=== PATIENT | male | born 1945 | race Caucasian/White ===

== ENCOUNTER 2020-03-23 16:32 | Inpatient (IN) | payer MEDICARE ==
[~2020-03-23] VITALS: Ht 170.2 cm; Wt 149.0 kg
[~2020-03-23 16:32] MED LIST: Aspirin EC81 MG PO; BASAGLAR K100 UNIT/1 SC; BISA10S PR; BUME2 PO; DOCU100 PO; GLIP5 PO; LEVFLO250 PO; LISI5 PO; METO2.5 PO; NEBI5 PO; OMEP40CA12 PO; POTCHL10ER PO; PRAV20 PO; QUALAQUIN; TRIHYD253A PO
[2020-03-23 17:22] LABS: BASOPHILS ABSOLUTE AUTO 0.06 K/mm3 (0.00-0.23); BASOPHILS PERCENT AUTO 1 % (0-2); EOSINOPHILS ABSOLUTE AUTO 0.26 K/mm3 (0.00-0.68); EOSINOPHILS PERCENT AUTO 3 % (0-6); Hematocrit 45.7 % (37.0-53.0); Hemoglobin 14.2 g/dL (13.5-17.5); IMMATURE GRAN ABSOLUTE AUTO 0.11 K/mm3 (0.00-0.10); IMMATURE GRAN PERCENT AUTO 1 % (0-1); LYMPHOCYTES ABSOLUTE AUTO 1.94 K/mm3 (0.84-5.20); LYMPHOCYTES PERCENT AUTO 19 % (21-46); MONOCYTES PERCENT AUTO 8 % (4-13); Mean Corpuscular HGB 27.4 pg (26.0-34.0); Mean Corpuscular HGB Conc 31.1 g/dL (31.5-36.5); Mean Corpuscular Volume 88 fL (80-100); NEUTROPHILS PERCENT AUTO 69 % (41-73); Platelet Count 209 K/mm3 (150-400); RDW Coefficient Variation 15.3 % (11.7-14.2); RDW Standard Deviation 49.3 fL (35.1-46.3); Red Blood Cell Count 5.18 M/mm3 (4.30-5.90); White Blood Cell Count 10.17 K/mm3 (4.00-11.30)
[2020-03-23 17:47] LABS: Alanine Aminotransfer (ALT/SGP 32 U/L (12-78); Albumin, Blood 3.3 g/dL (3.4-5.0); Albumin/Globulin Ratio 0.8 (0.8-1.8); Alk Phos 50 U/L (50-136); Anion Gap 5 mmol/L (6-16); Aspartate Aminotrans (AST/SGOT 21 U/L (12-37); Bilirubin, Total 0.3 mg/dL (0.1-1.0); Blood Urea Nitrogen 25 mg/dL (8-24); Bun/Creatinine Ratio 21.7 (12.0-20.0); CO2, Blood 30 mmol/L (21-32); Calcium, Blood 10.2 mg/dL (8.5-10.1); Chloride, Blood 102 mmol/L (98-108); Creatinine, Blood 1.15 mg/dL (0.60-1.20); Glomerular Filtration Rate >60 (60-); Glucose, Blood 295 mg/dL (70-99); Potassium, Blood 4.1 mmol/L (3.5-5.5); Sodium, Blood 137 mmol/L (136-145); Total Protein, Blood 7.3 g/dL (6.4-8.2); Troponin I <0.015 ng/mL (0.000-0.040)
[2020-03-23] MEDS ORDERED: Potassium Chlo20 ME1 PO (18:47)
[2020-03-23] MEDS ORDERED: Bumetanide2 MG PO (18:47)
[2020-03-23] MEDS ORDERED: ALLO300 PO (18:48)
[2020-03-23] MEDS ORDERED: OMEP20ER PO (18:48)
[2020-03-23] MEDS ORDERED: GLIP10 PO (18:48)
[2020-03-23] MEDS ORDERED: LISINOPRIL2.5 MG PO (18:48)
[2020-03-23] MEDS ORDERED: METFORMIN HCL500 M2 PO (18:49)
[2020-03-23] MEDS ORDERED: INSULIN AS100 UNIT/8 SC (18:50)
[2020-03-23 19:41] LABS: International Normalized Ratio 1.01; Prothrombin Time Results 10.8 Sec (9.7-11.5)
[2020-03-23] MEDS ORDERED: FERSU300 PO (19:44)
[2020-03-23] MEDS ORDERED: Vitamin D2000 UNIT PO (19:44)
[2020-03-24 03:56] LABS: BASOPHILS ABSOLUTE AUTO 0.05 K/mm3 (0.00-0.23); BASOPHILS PERCENT AUTO 1 % (0-2); EOSINOPHILS ABSOLUTE AUTO 0.35 K/mm3 (0.00-0.68); EOSINOPHILS PERCENT AUTO 4 % (0-6); Hematocrit 43.7 % (37.0-53.0); Hemoglobin 13.8 g/dL (13.5-17.5); IMMATURE GRAN ABSOLUTE AUTO 0.09 K/mm3 (0.00-0.10); IMMATURE GRAN PERCENT AUTO 1 % (0-1); LYMPHOCYTES ABSOLUTE AUTO 2.62 K/mm3 (0.84-5.20); LYMPHOCYTES PERCENT AUTO 27 % (21-46); MONOCYTES ABSOLUTE AUTO 0.86 K/mm3 (0.16-1.47); MONOCYTES PERCENT AUTO 9 % (4-13); Mean Corpuscular HGB 27.9 pg (26.0-34.0); Mean Corpuscular HGB Conc 31.6 g/dL (31.5-36.5); Mean Corpuscular Volume 89 fL (80-100); Mean Platelet Volume 10.7 fL (9.1-12.4); NEUTROPHILS ABSOLUTE AUTO 5.82 K/mm3 (1.96-9.15); NEUTROPHILS PERCENT AUTO 59 % (41-73); Platelet Count 224 K/mm3 (150-400); RDW Coefficient Variation 15.3 % (11.7-14.2); RDW Standard Deviation 49.2 fL (35.1-46.3); Red Blood Cell Count 4.94 M/mm3 (4.30-5.90); White Blood Cell Count 9.79 K/mm3 (4.00-11.30)
[2020-03-24 04:09] LABS: International Normalized Ratio 1.06; Prothrombin Time Results 11.3 Sec (9.7-11.5)
[2020-03-24 04:13] LABS: Anion Gap 5 mmol/L (6-16); Blood Urea Nitrogen 23 mg/dL (8-24); Bun/Creatinine Ratio 20.9 (12.0-20.0); CO2, Blood 31 mmol/L (21-32); Calcium, Blood 9.6 mg/dL (8.5-10.1); Chloride, Blood 105 mmol/L (98-108); Glomerular Filtration Rate >60 (60-); Glucose, Blood 160 mg/dL (70-99); Potassium, Blood 3.5 mmol/L (3.5-5.5); Sodium, Blood 141 mmol/L (136-145)
--- NOTE | 2020-03-24 06:24 | NUR ---
PATIENT TRANSFERRED FROM THE ED OVERNIGHT. DILTIAZEM DRIP INFUSING AT 10ML/HR. AFIB FLUCTUATING FROM 70'S TO 110'S. NO COMPLAINT OF CHEST PAIN OR SOB. EDUCATED ON THE USE OF CALL LIGHT AND UNIT ROUNDING. CALL LIGHT WITHIN REACH, WILL CONTINUE TO MONITOR UNTIL END OF SHIFT
--- NOTE | 2020-03-24 10:28 | NUR ---
BEGINNING OF SHIFT Assumed care at 0700. Bedside report recieved from Franko DELA CRUZ. Pt A&O x 4. Answers questions, follows commands, verbalizes needs. Repositions independently in bed. Pt on room air. Lungs clear, dim in bases. Pt on cardizem drip at 10 mg/hr. Atrial fibrillation per monitor with rate ranging from 105-115. Bed in lowest position. Call light in reach. Pt denies need at this time.
--- NOTE | 2020-03-24 14:50 | NUR ---
Cardizem drip discontinued at 1330. HR 80-90, atrial fibrillation. Pt remains on room air. Remains independent with in bed and bedside activities.
--- NOTE | 2020-03-24 17:38 | NUR ---
No acute changes to initial assessment. Pt has remained off cardizem drip. HR 80s-90s. BP stable. Pt remains on room air. Pt up to shower this shift, tolerated well. Will continue to closely monitor until care handoff and bedside report with oncoming RN.
--- NOTE | 2020-03-24 18:08 | NUR ---
Placed call to Dr Garcia to clarify new lovenox orders because pt is not yet therapeutic with coumadin dosing. Provider states that bridging from lovenox to coumadin is not necessary for this patient.
--- NOTE | 2020-03-24 19:09 | NUR ---
REPORT GIVEN TO TAMIKO DELA CRUZ
[2020-03-25 04:41] LABS: International Normalized Ratio 1.28; Prothrombin Time Results 13.5 Sec (9.7-11.5)
--- NOTE | 2020-03-25 07:16 | NUR ---
SHIFT SUMMARY PATIENT PLEASENT AND COOPERATIVE THROUGHOUT THE NIGHT. PATIENT APPEARED TO SLEEP WELL FOR SEVERAL HOURS LAST NIGHT. PATIENT USED HIS CPAP AND CONTINUOUS BIOX IN PLACE. PATIENT HAS BEEN VERY HOPFUL TO GO HOME TODAY AND HAS BEEN PLANNING WHAT HE WOULD LIKE TO HAVE FOR DINNER TONIGHT IF HE "GETS OUT OF HERE." PATIENT CURRENTLY SITTING UP IN THE CHAIR, WATCHING TV. REPORT GIVEN TO ONCBONG DELA CRUZ.
[2020-03-25] MEDS ORDERED: METF500 PO (10:08)
[2020-03-25] MEDS ORDERED: XARELTO20 MG PO (10:09)
[2020-03-25] MEDS ORDERED: METO50 PO (10:09)
--- NOTE | 2020-03-25 10:38 | NUR ---
DISCHARGED PT REVIEWED DC INSTRUCTIONS W/PT; VERBALIZED UNDERSTANDING. DC'D IVS, CATHETERS INTACT. TELE MONITOR DC'D. PT LEFT UNIT IN WC W/POSSESSIONS AND DC PAPERWORK IN HAND W/RIDE.
== END 2020-03-25 10:31 | disposition home or self-care (01) | DRG 309 ==
LOC: ER 16:32 → PCU 16:33
PROVIDERS: Emergency Medicine; Nurse Practitioner Acute Care; ADMIT Family Medicine
DX: I48.20 Chronic atrial fibrillation, unspecified (principal); Z68.43 Body mass index [BMI] 50.0-59.9, adult; I10 Essential (primary) hypertension; E78.5 Hyperlipidemia, unspecified; J44.9 Chronic obstructive pulmonary disease, unspecified; Z79.4 Long term (current) use of insulin; G47.33 Obstructive sleep apnea (adult) (pediatric); E11.22 Type 2 diabetes mellitus with diabetic chronic kidney disease; I12.9 Hypertensive chronic kidney disease with stage 1 through stage 4 chronic kidney disease, or unspecified chronic kidney disease; N18.3 Chronic kidney disease, stage 3 (moderate); M54.5 Low back pain; Z87.891 Personal history of nicotine dependence; K75.81 Nonalcoholic steatohepatitis (NASH); E66.01 Morbid (severe) obesity due to excess calories
CPT/HCPCS: 36415; 71046; 80048; 80053; 82947; 83880; 84443; 84484; 85025; 85610; 85730; 93005; 93010; 93306; 94660; 94762; 96365; 96372; 96374; 96375; 96376; 99285-25; A9270; A9270-GY; G0378; J1650; J3475

== ENCOUNTER 2021-02-25 06:48 | Day surgery (SDC) | payer OTHER ==
[~2021-02-25] VITALS: Ht 170.2 cm; Wt 147.0 kg
[~2021-02-25 06:48] MED LIST changes: +ALLO300 PO; +Bumetanide2 MG PO; +FERSU300 PO; +GLIP10 PO; +INSULANI SC; +INSULIN AS100 UNIT/8 SC; +LISINOPRIL2.5 MG PO; +METF500 PO; +METFORMIN HCL500 M2 PO; +METO50 PO; +OMEP20ER PO; +Potassium Chlo20 ME1 PO; +Vitamin D2000 UNIT PO; +XARELTO20 MG PO
[2021-02-25] MEDS ORDERED: ELIQUIS2.5 MG PO (08:03)
--- NOTE | 2021-02-25 08:22 | NUR ---
PT IN TO DS BY W/C BUT ABLE TO WALK AND STAND TO GET HT/WT. History, Chart, Medications and Allergies reviewed before start of procedure. Lungs clear T/O to Auscultation. Patient confirms NPO status and agrees with scheduled surgery. Pre-Op teaching done. Pt verbalizes understanding. Patient states colon prep results clear. Patient States Post-Procedure ride home has been arranged WITH SISTER GIVING PT RIDE HOME.
--- NOTE | 2021-02-25 09:56 | NUR ---
02/25/21 0956 Brenda Lopes History, Chart, Medications and Allergies reviewed before start of procedure.Patient confirms NPO status and agrees with scheduled surgery.MONITOR INTACT WITH CONTINUOUS PULSE OXIMETRY AND INTERMITTENT BP.See Anesthesia record
--- NOTE | 2021-02-25 13:05 | NUR ---
Patient up to Ambulate independently. Gait steady. Discharge instructions reviewed with patient/Sister Lisy. Patient verbalizes understanding. Copy given to patient to take home. Patient States Post-Procedure ride home has been arranged. Discharged via wheelchair to private car for ride home.
== END 2021-02-25 13:14 | disposition home or self-care (01) ==
LOC: ORSCMMR 06:48 → ORD 08:30 → ORSCMMR 08:30
PROVIDERS: Internal Medicine Gastroenterology
PROC: 0DBL8ZX Excision of Transverse Colon, Via Natural or Artificial Opening Endoscopic, Diagnostic (ICD-10-PCS; principal; 2021-02-25 08:30)
PROC: 0DBM8ZX Excision of Descending Colon, Via Natural or Artificial Opening Endoscopic, Diagnostic (ICD-10-PCS; principal; 2021-02-25 08:30)
PROC: 0DBN8ZX Excision of Sigmoid Colon, Via Natural or Artificial Opening Endoscopic, Diagnostic (ICD-10-PCS; principal; 2021-02-25 08:30)
PROC: 0DBH8ZX Excision of Cecum, Via Natural or Artificial Opening Endoscopic, Diagnostic (ICD-10-PCS; principal; 2021-02-25 08:30)
PROC: 0DB78ZX Excision of Stomach, Pylorus, Via Natural or Artificial Opening Endoscopic, Diagnostic (ICD-10-PCS; 2021-02-25 08:30)
DX: D50.9 Iron deficiency anemia, unspecified (principal); K21.9 Gastro-esophageal reflux disease without esophagitis; Z86.010 Personal history of colon polyps; K31.7 Polyp of stomach and duodenum; D12.4 Benign neoplasm of descending colon; D12.3 Benign neoplasm of transverse colon; D12.0 Benign neoplasm of cecum; D12.5 Benign neoplasm of sigmoid colon; K57.30 Diverticulosis of large intestine without perforation or abscess without bleeding; K64.1 Second degree hemorrhoids; K76.6 Portal hypertension; E66.01 Morbid (severe) obesity due to excess calories; Z68.43 Body mass index [BMI] 50.0-59.9, adult; J44.9 Chronic obstructive pulmonary disease, unspecified; G47.33 Obstructive sleep apnea (adult) (pediatric); I48.91 Unspecified atrial fibrillation; E11.42 Type 2 diabetes mellitus with diabetic polyneuropathy; Z79.01 Long term (current) use of anticoagulants; I10 Essential (primary) hypertension; E78.5 Hyperlipidemia, unspecified; N18.9 Chronic kidney disease, unspecified; Z79.899 Other long term (current) drug therapy; Z79.82 Long term (current) use of aspirin; Z79.4 Long term (current) use of insulin
CPT/HCPCS: 82947; 88305; 88341; 88342; J0330; J1100; J2370; J2405; J2704; J3010; J7120

== ENCOUNTER → 2021-04-20 | Outpatient (CLI) | payer OTHER ==
[~2021-04-20] MED LIST changes: +ELIQUIS2.5 MG PO
[2021-04-20 19:13] LABS: BASOPHILS ABSOLUTE AUTO 0.05 K/mm3 (0.00-0.23); BASOPHILS PERCENT AUTO 1 % (0-2); EOSINOPHILS ABSOLUTE AUTO 0.27 K/mm3 (0.00-0.68); EOSINOPHILS PERCENT AUTO 3 % (0-6); Hematocrit 42.4 % (37.0-53.0); IMMATURE GRAN ABSOLUTE AUTO 0.05 K/mm3 (0.00-0.10); IMMATURE GRAN PERCENT AUTO 1 % (0-1); LYMPHOCYTES ABSOLUTE AUTO 1.75 K/mm3 (0.84-5.20); LYMPHOCYTES PERCENT AUTO 18 % (21-46); MONOCYTES PERCENT AUTO 9 % (4-13); Mean Corpuscular HGB Conc 30.7 g/dL (31.5-36.5); Mean Corpuscular Volume 94 fL (80-100); Mean Platelet Volume 11.6 fL (9.1-12.4); NEUTROPHILS ABSOLUTE AUTO 6.77 K/mm3 (1.96-9.15); NEUTROPHILS PERCENT AUTO 69 % (41-73); Platelet Count 195 K/mm3 (150-400); RDW Coefficient Variation 14.7 % (11.7-14.2); RDW Standard Deviation 50.9 fL (35.1-46.3); Red Blood Cell Count 4.49 M/mm3 (4.30-5.90); White Blood Cell Count 9.79 K/mm3 (4.00-11.30)
[2021-04-20 22:03] LABS: Alanine Aminotransfer (ALT/SGP 25 U/L (12-78); Albumin, Blood 3.3 g/dL (3.4-5.0); Albumin/Globulin Ratio 0.9 (0.8-1.8); Alk Phos 46 U/L (50-136); Anion Gap 3 mmol/L (6-16); Aspartate Aminotrans (AST/SGOT 14 U/L (12-37); Bilirubin, Total 0.4 mg/dL (0.1-1.0); Blood Urea Nitrogen 23 mg/dL (8-24); Bun/Creatinine Ratio 20.9 (12.0-20.0); CO2, Blood 28 mmol/L (21-32); Calcium, Blood 10.4 mg/dL (8.5-10.1); Chloride, Blood 107 mmol/L (98-108); Ferritin, Serum 31 ng/mL (26-388); Globulin, Blood 3.7 g/dL (2.2-4.0); Glomerular Filtration Rate >60 (60-); Glucose, Blood 149 mg/dL (70-99); Iron Serum 58 ug/dL (65-175); Percent Saturation 13.3 % (20.0-50.0); Potassium, Blood 4.7 mmol/L (3.5-5.5); Sodium, Blood 138 mmol/L (136-145); Total Iron Binding Capacity 435 ug/dL (250-450)
== END | disposition home or self-care (01) ==
LOC: LAB SHORT 15:20
PROVIDERS: Physician Assistant
DX: D50.9 Iron deficiency anemia, unspecified (principal); R94.4 Abnormal results of kidney function studies
CPT/HCPCS: 80053; 82728; 83540; 83550; 85025

== ENCOUNTER → 2021-07-20 | Outpatient (CLI) | payer OTHER ==
[2021-07-20 20:07] LABS: BASOPHILS ABSOLUTE AUTO 0.05 K/mm3 (0.00-0.23); BASOPHILS PERCENT AUTO 1 % (0-2); EOSINOPHILS PERCENT AUTO 3 % (0-6); Hematocrit 46.7 % (37.0-53.0); Hemoglobin 14.6 g/dL (13.5-17.5); IMMATURE GRAN ABSOLUTE AUTO 0.05 K/mm3 (0.00-0.10); IMMATURE GRAN PERCENT AUTO 1 % (0-1); LYMPHOCYTES ABSOLUTE AUTO 1.95 K/mm3 (0.84-5.20); LYMPHOCYTES PERCENT AUTO 20 % (21-46); MONOCYTES ABSOLUTE AUTO 0.88 K/mm3 (0.16-1.47); MONOCYTES PERCENT AUTO 9 % (4-13); Mean Corpuscular HGB 28.3 pg (26.0-34.0); Mean Corpuscular HGB Conc 31.3 g/dL (31.5-36.5); Mean Corpuscular Volume 91 fL (80-100); Mean Platelet Volume 11.2 fL (9.1-12.4); NEUTROPHILS ABSOLUTE AUTO 6.44 K/mm3 (1.96-9.15); NEUTROPHILS PERCENT AUTO 67 % (41-73); Platelet Count 218 K/mm3 (150-400); RDW Coefficient Variation 14.5 % (11.7-14.2); RDW Standard Deviation 47.8 fL (35.1-46.3); Red Blood Cell Count 5.16 M/mm3 (4.30-5.90); White Blood Cell Count 9.67 K/mm3 (4.00-11.30)
[2021-07-20 20:11] LABS: Bun/Creatinine Ratio 23.3 (12.0-20.0); Calcium, Blood 9.9 mg/dL (8.5-10.1); Creatinine, Blood 1.2 mg/dL (0.60-1.20); Potassium, Blood 4.4 mmol/L (3.5-5.5)
== END | disposition home or self-care (01) ==
LOC: LAB SHORT 16:35
PROVIDERS: Physician Assistant
DX: E87.5 Hyperkalemia (principal); D50.9 Iron deficiency anemia, unspecified
CPT/HCPCS: 80048; 85025

== ENCOUNTER → 2021-12-06 | Outpatient (CLI) | payer OTHER ==
[2021-12-06 17:54] LABS: BASOPHILS ABSOLUTE AUTO 0.07 K/mm3 (0.00-0.23); BASOPHILS PERCENT AUTO 1 % (0-2); EOSINOPHILS ABSOLUTE AUTO 0.44 K/mm3 (0.00-0.68); EOSINOPHILS PERCENT AUTO 3 % (0-6); Hematocrit 43.5 % (37.0-53.0); Hemoglobin 13.8 g/dL (13.5-17.5); IMMATURE GRAN ABSOLUTE AUTO 0.23 K/mm3 (0.00-0.10); IMMATURE GRAN PERCENT AUTO 2 % (0-1); LYMPHOCYTES ABSOLUTE AUTO 2.13 K/mm3 (0.84-5.20); LYMPHOCYTES PERCENT AUTO 17 % (21-46); MONOCYTES ABSOLUTE AUTO 1.05 K/mm3 (0.16-1.47); MONOCYTES PERCENT AUTO 8 % (4-13); Mean Corpuscular HGB 27.5 pg (26.0-34.0); Mean Corpuscular HGB Conc 31.7 g/dL (31.5-36.5); Mean Corpuscular Volume 87 fL (80-100); Mean Platelet Volume 10.1 fL (9.1-12.4); NEUTROPHILS PERCENT AUTO 70 % (41-73); Platelet Count 342 K/mm3 (150-400); RDW Coefficient Variation 14.6 % (11.7-14.2); Red Blood Cell Count 5.01 M/mm3 (4.30-5.90); White Blood Cell Count 12.82 K/mm3 (4.00-11.30)
[2021-12-06 19:04] LABS: Alanine Aminotransfer (ALT/SGP 16 U/L (12-78); Albumin, Blood 3.2 g/dL (3.4-5.0); Albumin/Globulin Ratio 0.8 (0.8-1.8); Alk Phos 406 U/L (50-136); Anion Gap 7 mmol/L (6-16); Aspartate Aminotrans (AST/SGOT 53 U/L (12-37); Bilirubin, Total 0.8 mg/dL (0.1-1.0); Blood Urea Nitrogen 22 mg/dL (8-24); CHOL/HDL RATIO 5.8; CO2, Blood 26 mmol/L (21-32); Calcium, Blood 10.6 mg/dL (8.5-10.1); Chloride, Blood 102 mmol/L (98-108); Cholesterol 169 mg/dL (50-200); Globulin, Blood 3.8 g/dL (2.2-4.0); Glomerular Filtration Rate >60 (60-); Glucose, Blood 112 mg/dL (70-99); HDL Cholesterol 29 mg/dL (>39); LDL/HDL RATIO 3.4; Low Density Lipoprotein Chol 97 mg/dL (0-110); Potassium, Blood 4.6 mmol/L (3.5-5.5); Sodium, Blood 135 mmol/L (136-145); Triglycerides 214 mg/dL (30-160); Very Low Density Lipoprot Chol 42 mg/dL (6-32)
== END | disposition home or self-care (01) ==
LOC: LAB 15:58 → LAB SHORT 15:58
PROVIDERS: Nurse Practitioner
DX: Z11.59 Encounter for screening for other viral diseases (principal); I10 Essential (primary) hypertension; E11.65 Type 2 diabetes mellitus with hyperglycemia; E78.2 Mixed hyperlipidemia; R74.8 Abnormal levels of other serum enzymes
CPT/HCPCS: 80053; 80061; 82043; 82977; 85025; 86803

== ENCOUNTER 2022-01-02 08:48 | Emergency (ER) | payer OTHER, MEDICAID ==
[~2022-01-02] VITALS: Ht 170.2 cm; Wt 127.0 kg
[2022-01-02 09:44] LABS: BASOPHILS ABSOLUTE AUTO 0.08 K/mm3 (0.00-0.23); BASOPHILS PERCENT AUTO 1 % (0-2); EOSINOPHILS ABSOLUTE AUTO 0.19 K/mm3 (0.00-0.68); EOSINOPHILS PERCENT AUTO 2 % (0-6); Hematocrit 39.5 % (37.0-53.0); Hemoglobin 12.4 g/dL (13.5-17.5); IMMATURE GRAN PERCENT AUTO 3 % (0-1); LYMPHOCYTES ABSOLUTE AUTO 1.68 K/mm3 (0.84-5.20); LYMPHOCYTES PERCENT AUTO 14 % (21-46); MONOCYTES ABSOLUTE AUTO 1.32 K/mm3 (0.16-1.47); MONOCYTES PERCENT AUTO 11 % (4-13); Mean Corpuscular HGB 27.4 pg (26.0-34.0); Mean Corpuscular HGB Conc 31.4 g/dL (31.5-36.5); Mean Corpuscular Volume 87 fL (80-100); Mean Platelet Volume 9.7 fL (9.1-12.4); NEUTROPHILS ABSOLUTE AUTO 8.75 K/mm3 (1.96-9.15); NEUTROPHILS PERCENT AUTO 71 % (41-73); Platelet Count 360 K/mm3 (150-400); RDW Coefficient Variation 15.3 % (11.7-14.2); RDW Standard Deviation 48.5 fL (35.1-46.3); Red Blood Cell Count 4.52 M/mm3 (4.30-5.90); White Blood Cell Count 12.42 K/mm3 (4.00-11.30)
[2022-01-02 10:32] LABS: Albumin, Blood 2.6 g/dL (3.4-5.0); Albumin/Globulin Ratio 0.6 (0.8-1.8); Bilirubin, Total 0.7 mg/dL (0.1-1.0); Bun/Creatinine Ratio 16.7 (12.0-20.0); Creatinine, Blood 0.84 mg/dL (0.60-1.20); Globulin, Blood 4.3 g/dL (2.2-4.0); Potassium, Blood 4.7 mmol/L (3.5-5.5); Total Protein, Blood 6.9 g/dL (6.4-8.2)
[2022-01-02 11:10] LABS: Source, Urine Clean Catch
[2022-01-02 11:28] LABS: Bilirubin, Urine Neg (Neg); Blood, Urine Neg (Neg); Glucose Qualitative, Urine Neg (Neg); Ketones, Urine Neg (Neg); Leukocyte Esterase, Urine Neg (Neg); Nitrite, Urine Neg (Neg); Protein, Urine 1+ (Neg); Specific Gravity, Urine 1.015 (1.003-1.022); Urobilinogen, Urine 2+ (Normal)
[2022-01-02 11:33] LABS: Appearance, Urine Clear (Clear); Color, Urine Yellow (P-Yellow)
[2022-01-02 14:15] LABS: Influenza A, PCR NEGATIVE (NEGATIVE); Influenza B, PCR NEGATIVE (NEGATIVE); Resp Syncytial Virus, PCR NEGATIVE (NEGATIVE); SARS-Cov-2 (COVID-19) PCR, MMC NEGATIVE (NEGATIVE)
== END 2022-01-03 12:20 ==
LOC: ER 08:48
PROVIDERS: Emergency Medicine
DX: R53.1 Weakness (principal); E78.5 Hyperlipidemia, unspecified; E11.22 Type 2 diabetes mellitus with diabetic chronic kidney disease; I12.9 Hypertensive chronic kidney disease with stage 1 through stage 4 chronic kidney disease, or unspecified chronic kidney disease; N18.30 Chronic kidney disease, stage 3 unspecified; J44.9 Chronic obstructive pulmonary disease, unspecified; E66.01 Morbid (severe) obesity due to excess calories; R74.8 Abnormal levels of other serum enzymes; I70.90 Unspecified atherosclerosis; M47.816 Spondylosis without myelopathy or radiculopathy, lumbar region; Z20.822 Contact with and (suspected) exposure to COVID-19; Z79.899 Other long term (current) drug therapy; Z88.8 Allergy status to other drugs, medicaments and biological substances; Z88.1 Allergy status to other antibiotic agents; Z79.4 Long term (current) use of insulin; Z79.01 Long term (current) use of anticoagulants; Z79.82 Long term (current) use of aspirin; Z91.018 Allergy to other foods
CPT/HCPCS: 0241U; 71045; 72100; 72170; 80053; 83880; 85025; 93005; 93010; 97110; 97162; 99285-25; J7030

== ENCOUNTER → 2022-02-27 | Outpatient (CLI) | payer OTHER | END | disposition home or self-care (01) | LOC: LAB 17:40 → LAB SHORT 17:40 | DX: E11.9 Type 2 diabetes mellitus without complications (principal); M62.81 Muscle weakness (generalized); R74.8 Abnormal levels of other serum enzymes | CPT/HCPCS: 83036; 83970 ==

== ENCOUNTER 2022-03-08 17:05 | Inpatient (IN) | payer OTHER ==
[~2022-03-08] VITALS: Ht 170.2 cm; Wt 124.1 kg
[2022-03-08 18:03] LABS: BASOPHILS ABSOLUTE AUTO 0.04 K/mm3 (0.00-0.23); BASOPHILS PERCENT AUTO 0 % (0-2); EOSINOPHILS ABSOLUTE AUTO 0.19 K/mm3 (0.00-0.68); EOSINOPHILS PERCENT AUTO 2 % (0-6); Hemoglobin 7.2 g/dL (13.5-17.5); IMMATURE GRAN ABSOLUTE AUTO 0.54 K/mm3 (0.00-0.10); IMMATURE GRAN PERCENT AUTO 4 % (0-1); LYMPHOCYTES PERCENT AUTO 15 % (21-46); MONOCYTES ABSOLUTE AUTO 1.31 K/mm3 (0.16-1.47); MONOCYTES PERCENT AUTO 11 % (4-13); Mean Corpuscular HGB 26.5 pg (26.0-34.0); Mean Corpuscular Volume 88 fL (80-100); Mean Platelet Volume 10.1 fL (9.1-12.4); NEUTROPHILS ABSOLUTE AUTO 8.47 K/mm3 (1.96-9.15); NEUTROPHILS PERCENT AUTO 69 % (41-73); NRBC ABSOLUTE 0.03 K/mm3 (0.00-0.02); NRBC Auto 0.2 /100 WBC (0.0-0.2); Platelet Count 343 K/mm3 (150-400); RDW Coefficient Variation 19.7 % (11.7-14.2); RDW Standard Deviation 61.4 fL (35.1-46.3); Red Blood Cell Count 2.72 M/mm3 (4.30-5.90); White Blood Cell Count 12.35 K/mm3 (4.00-11.30)
[2022-03-08 18:33] LABS: Albumin, Blood 2.5 g/dL (3.4-5.0); Albumin/Globulin Ratio 0.6 (0.8-1.8); Bilirubin, Total 0.7 mg/dL (0.1-1.0); Calcium, Blood 9.9 mg/dL (8.5-10.1); Creatinine, Blood 2.1 mg/dL (0.60-1.20); Potassium, Blood 5.5 mmol/L (3.5-5.5); Total Protein, Blood 6.5 g/dL (6.4-8.2)
[2022-03-08 23:52] LABS: Source, Urine Clean Catch
[2022-03-08 23:54] LABS: Bilirubin, Urine Neg (Neg); Blood, Urine Neg (Neg); Glucose Qualitative, Urine Neg (Neg); Ketones, Urine Neg (Neg); Leukocyte Esterase, Urine 1+ (Neg); Nitrite, Urine Neg (Neg); Protein, Urine Neg (Neg); Specific Gravity, Urine 1.015 (1.003-1.022); Urobilinogen, Urine NORM (Normal)
[2022-03-09 00:04] LABS: Influenza A, PCR NEGATIVE (NEGATIVE); Influenza B, PCR NEGATIVE (NEGATIVE); Resp Syncytial Virus, PCR NEGATIVE (NEGATIVE)
[2022-03-09 00:09] LABS: SARS-Cov-2 (COVID-19) PCR, MMC POSITIVE (NEGATIVE)
[2022-03-09 00:20] LABS: Appearance, Urine Clear (Clear); Color, Urine Yellow (P-Yellow)
[2022-03-09 00:20] LABS: Hematocrit 24.2 % (37.0-53.0); Hemoglobin 7.2 g/dL (13.5-17.5); Mean Corpuscular HGB 26.8 pg (26.0-34.0); Mean Corpuscular HGB Conc 29.8 g/dL (31.5-36.5); Mean Corpuscular Volume 90 fL (80-100); Mean Platelet Volume 9.8 fL (9.1-12.4); Platelet Count 309 K/mm3 (150-400); RDW Coefficient Variation 19.5 % (11.7-14.2); RDW Standard Deviation 61.5 fL (35.1-46.3); Red Blood Cell Count 2.69 M/mm3 (4.30-5.90); White Blood Cell Count 13.34 K/mm3 (4.00-11.30)
[2022-03-09 00:22] LABS: Bacteria Not Seen /hpf; Hyaline Casts 0-2 /lpf (0-2); Red Blood Cells, Urine Not Seen /hpf (0-2); Squamous Epithelial Cells Rare /hpf (Few); White Blood Cells, Urine 0-2 /hpf (0-5)
[2022-03-09 05:42] LABS: Hematocrit 23.9 % (37.0-53.0)
--- NOTE | 2022-03-09 06:04 | NUR ---
SHIFT SUMMARY ER ADMIT. PT ALERT. ABLE TO ANSWER ORIENTATION QUESTIONS BUT FORGETFUL. FALLS ASLEEP AFTER ANSWERING QUESTIONS. BP HYPOTENSIVE ON ARRIVAL TO PCU. 500ML BOLUS GIVEN, MAP NOW MAINTAINING OVER 65. AFEBRILE. ON RA SATS OVER 90%. LUNGS DIMINISHED THROUGHOUT. HR AFIB 70'S. PT DENIES PAIN OR DISCOMFORT. NS, PROTONIX, AND OCREATIDE GTT INFUSING. YISEL PG DRAWS. SALDANA IN PLACE DRAINING DARK YELLOW URINE TO GRAVITY. SLEEPING WITH CALL ALARM AT SIDE, WILL CONTINUE TO MONITOR UNTIL REPORT GIVEN TO MARIA C DELA CRUZ.
--- NOTE | 2022-03-09 10:58 | NUR ---
PT RECIEVING BLOOD AT THIS TIME. ATTEMPTED TO CALL SISTER TO GIVE UPDATE. MESSAGE LEFT TO GIVE A CALL BACK
--- NOTE | 2022-03-09 11:00 | NUR ---
Attempted to make initial visit and contact two family members listed on face sheet, Sister-Cira and [id number]-Vivian. Message left on home phone [phone], requesting call back and text message sent to Vivian's cell [phone], as it did not have VM set up and requested text to contact. I attempted to visit with pt but he did not wake to voice or gentle touch/attempts to wake x two. He appears to be profoundly exhausted, sleeping, while blood being transfused. Goal is to discuss his wishes re: advanced resuscitation efforts desired and goals of care. I spoke with Dr and pt's RN. Pt has requested we discuss with his family. I will keep trying to reach them. Pt was admitted during the night for GI bleed. In review of past admissions, this is a recurrent issue for pt. Pt stated to admitting Dr that he did not want intubation and POLST on file in EMR also states no intubation. This POLST was completed in 2015. Will attempt to complete new POLST while pt here. Pt's comorbidities include acute/chronic kidney failure, DM, HTN, COPD, CHRISTIE, CHF, hx of metastatic prostate CA (per Dr and confirmed to Dr by pt). Pt had a Covid infection 1-2 months ago and a stay at SNF afterwards for rehab services. He resides in the same home as his sister and [id number]. SUMIT is caregiver for both pt and his sister and works outside of the home per CM notes from December ER visit. PLAN to cont attempting to reach family for advanced care planning.
[2022-03-09 14:07] LABS: Hematocrit 25.2 % (37.0-53.0); Hemoglobin 7.7 g/dL (13.5-17.5)
--- NOTE | 2022-03-09 15:46 | NUR ---
SPOKE WITH DR MORALES REGARDING PLANS FOR PT. CLEAR LIQUIDS AT THIS TIME, POSSIBLE PROCEDURE TOMORROW. DR DOWNS AWARE. DR DOWNS AWARE THAT PT RECIEVED 1 UNIT OF BLOOD WITH SLIGHT IMPROVEMENT. SOFT BPS T/O DAY WITH LETHARGY. DR JORDAN STOP IV FLUIDS AFTER THIS BAG SO TO NOT FLUID OVERLOAD PT. TO REVIEW HOME MEDS.
--- NOTE | 2022-03-09 17:34 | NUR ---
SHIFT SUMMARY: PT WORKED WITH PHYSICAL THERAPY THIS EVENING, TOLERATED WELL PER THERAPIST. RECOMMENDING SNF AT THIS TIME. DR MORALES STATES POSSIBLE PROCEDURE TOMORROW. NO REPORTS OF STOOL THIS SHIFT. 1 UNIT OF BLOOD RECIEVED. BP HAS IMPROVED BY END OF SHIFT.
[2022-03-09 17:53] LABS: Hematocrit 25.8 % (37.0-53.0); Hemoglobin 7.8 g/dL (13.5-17.5)
[2022-03-10 04:11] LABS: BASOPHILS ABSOLUTE AUTO 0.03 K/mm3 (0.00-0.23); BASOPHILS PERCENT AUTO 0 % (0-2); EOSINOPHILS ABSOLUTE AUTO 0.15 K/mm3 (0.00-0.68); EOSINOPHILS PERCENT AUTO 2 % (0-6); Hematocrit 25.1 % (37.0-53.0); Hemoglobin 7.6 g/dL (13.5-17.5); IMMATURE GRAN ABSOLUTE AUTO 0.39 K/mm3 (0.00-0.10); IMMATURE GRAN PERCENT AUTO 4 % (0-1); LYMPHOCYTES ABSOLUTE AUTO 1.14 K/mm3 (0.84-5.20); LYMPHOCYTES PERCENT AUTO 11 % (21-46); MONOCYTES PERCENT AUTO 8 % (4-13); Mean Corpuscular HGB 27.5 pg (26.0-34.0); Mean Corpuscular HGB Conc 30.3 g/dL (31.5-36.5); Mean Corpuscular Volume 91 fL (80-100); Mean Platelet Volume 9.9 fL (9.1-12.4); NEUTROPHILS ABSOLUTE AUTO 7.49 K/mm3 (1.96-9.15); NEUTROPHILS PERCENT AUTO 75 % (41-73); NRBC ABSOLUTE 0.02 K/mm3 (0.00-0.02); NRBC Auto 0.2 /100 WBC (0.0-0.2); Platelet Count 274 K/mm3 (150-400); RDW Coefficient Variation 19.1 % (11.7-14.2); Red Blood Cell Count 2.76 M/mm3 (4.30-5.90)
--- NOTE | 2022-03-10 05:34 | NUR ---
NOC SHIFT SUMMARY PT LETHARGIC AT BEGINNING OF SHIFT BUT ORIENTED X4. BECAME MORE ALERT THIS AM. VSS PER PT TREND. NO COMPLAINTS OF PAIN. SALDANA TO DD W/ADEQUATE OUTPUT. NSR ON TELEMETRY. WILL CONTINUE TO MONITOR AND PASS ON TO DAY RN
[2022-03-10 05:42] LABS: Albumin, Blood 2.2 g/dL (3.4-5.0); Albumin/Globulin Ratio 0.7 (0.8-1.8); Bilirubin, Total 0.6 mg/dL (0.1-1.0); Calcium, Blood 9.3 mg/dL (8.5-10.1); Creatinine, Blood 1.86 mg/dL (0.60-1.20); Globulin, Blood 3.1 g/dL (2.2-4.0); Potassium, Blood 4.8 mmol/L (3.5-5.5); Total Protein, Blood 5.3 g/dL (6.4-8.2)
--- NOTE | 2022-03-10 11:24 | NUR ---
03/10/22 1124 Concepción Singh History, Chart, Medications and Allergies reviewed before start of procedure.LIDO P[RAY TO THROAT PRIOR TO PROCEDURE. DR TEJADA PROVIDING ANESTHESIA. BITE BLOCK AND POM PLACED PRIOR TO PROCEDURE
[2022-03-10 17:27] LABS: Hematocrit 27.1 % (37.0-53.0); Hemoglobin 8.2 g/dL (13.5-17.5)
--- NOTE | 2022-03-10 17:34 | NUR ---
SUMMARY: NO ACUTE CHANGE TODAY, VSS. A/O. PT ABLE TO WORK WITH THERAPY, UP WITH1-2 AND FWW. SOME SOB ON EXERTION. SATS STABLE ON RA. UPPER ENDO COMPLETED TODAY, PT TOLERATED POST OP WELL. PT HAD LARGE DARK BM TONIGHT, NO SIGNS OF ACUTE BLEED . PT DENIES ANY DIZZINESS, SOB. SALDANA DRAINING. PLAN IS FOR AN ADDITIONAL ENDOSCOPY ON SUNDAY FOR POLYP REMOVAL. NO ACUTE SAFETY CONCERNS. PT AND PT FAMILY IS AWARE OF PLAN. WILL CTM AND REPORT TO ERINN DELA CRUZ.
--- NOTE | 2022-03-10 17:50 | NUR ---
Family meeting with Gasper, Jovon-Jeanne [phone] and pt's sis-in-law, Shavon. They request that Jeanne be the primary contact for communication and planning as she is most able to answer phone or respond in timely way. Drs discussed current issues and concerns with family and plan of care to address GI Bleed, pneumonia and colon polyp noted in today's endoscopy. Pt has evidence of bony mets from prostate cancer also. Code status addressed with advanced care planning conversation. Jovon had just arrived from out of state and had not had time to discuss with pt yet. Planned with family and pt to stop in over the weekend to further discuss if they would like to. Currently the pt will remain a full code. He was more awake today than yesterday but dozed off frequently during the visit and did not participate in the conversation between family and Gasper or me. He c/o lower abd discomfort like a band around low abd and low back. Pt was able to work with PT today and PT recommended for when pt is medically stable for d/c back home. RN present for family meeting also.
[2022-03-11 00:18] LABS: Hematocrit 25.2 % (37.0-53.0); Hemoglobin 7.7 g/dL (13.5-17.5)
[2022-03-11 06:46] LABS: Hemoglobin 7.5 g/dL (13.5-17.5)
--- NOTE | 2022-03-11 06:48 | NUR ---
NOC SHIFT SUMMARY PT ORIENTED X3, LETHARGIC BUT AWAKENS TO VOICE. CPAP OVERNIGHT, NO COMPLAINTS OF PAIN OR DISCOMFORT. VSS PER PT TREND. ADEQUATE UOP PER SALDANA. WILL CONTINUE TO MONITOR AND PASS ON TO DAY RN
[2022-03-11] MEDS ORDERED: ATOR20 PO (09:01)
[2022-03-11 09:02] LABS: Bun/Creatinine Ratio 24.2 (12.0-20.0); Calcium, Blood 10.6 mg/dL (8.5-10.1); Creatinine, Blood 1.61 mg/dL (0.60-1.20); Potassium, Blood 4.4 mmol/L (3.5-5.5)
[2022-03-11] MEDS ORDERED: Robaxin750 MG PO (09:09)
[2022-03-11] MEDS ORDERED: D3 PO (09:10)
[2022-03-11] MEDS ORDERED: NYSTATIN POWDER TOP (09:14)
[2022-03-11] MEDS ORDERED: Triamcinolone A15 G2 TOP (09:15)
[2022-03-11 14:03] LABS: Hematocrit 27.2 % (37.0-53.0); Hemoglobin 8.1 g/dL (13.5-17.5)
--- NOTE | 2022-03-11 17:58 | NUR ---
PT SUMMARY: PT ALERT AND ORIENTED AT BASELINE, PLEASANT AND COOPERATIVE WITH CARES, VITALS HRR AFIB 90-130'S INCREASES WITH EXERTION, METOPROLOL TARTRATE 50MG RESUMED FOR THE SHIFT, HRR STAYED 70-100 FOR THE REST OF THE SHIFT, SATS ABOVE 90% ON RA PT GETS SOB WITH EXERTION, CPAP WHEN SLEEPING. BP SYSTOLIC 120-130'S, AFEBRILE. 2PA VIA FWW FOR TRANSFERS, NO REPORTED BM FOR THE SHIFT, NO ACTIVE BLEEDING, ALST HGB IS AT 8.1 DR MORALES SAW PT TODAY STILL PLANS ON DOING REPEAT UPPER GI SCOPE INPATIENT ON Sunday03/13/22. PT DENIES ANY KIND OF PAIN FOR THE SHIFT, PT REPOSITONED IN BED FOR COMFORT. SALDANA DRAINING DARK YELLOW URINE VIA GRAVITY. DAUGHTER AT BEDSIDE MOST OF THE SHIFT, AWARE OF THE PLAN OF CARE. NO OTHER ISSUES REPORTED, ABLE TO MAKE NEEDS KNOWN, WILL REPORT TO ONCOMING SHIFT
[2022-03-11 19:12] LABS: Hematocrit 26.2 % (37.0-53.0); Hemoglobin 7.7 g/dL (13.5-17.5)
[2022-03-12 04:53] LABS: Hematocrit 26.6 % (37.0-53.0); Hemoglobin 7.9 g/dL (13.5-17.5); Mean Corpuscular HGB 27.4 pg (26.0-34.0); Mean Corpuscular HGB Conc 29.7 g/dL (31.5-36.5); Mean Corpuscular Volume 92 fL (80-100); NRBC ABSOLUTE 0.04 K/mm3 (0.00-0.02); NRBC Auto 0.5 /100 WBC (0.0-0.2); Platelet Count 272 K/mm3 (150-400); RDW Coefficient Variation 19.8 % (11.7-14.2); RDW Standard Deviation 63.9 fL (35.1-46.3); Red Blood Cell Count 2.88 M/mm3 (4.30-5.90)
[2022-03-12 05:13] LABS: Bun/Creatinine Ratio 23.6 (12.0-20.0); Calcium, Blood 10.6 mg/dL (8.5-10.1); Creatinine, Blood 1.44 mg/dL (0.60-1.20); Potassium, Blood 4.5 mmol/L (3.5-5.5)
[2022-03-12 05:37] LABS: BAND PERCENT MAN 3 % (0-8); BASOPHILS PERCENT MAN 0 % (0-2); EOSINOPHILS ABSOLUTE MAN 0.68 K/mm3 (0.00-0.68); EOSINOPHILS PERCENT MAN 8 % (0-6); LYMPHOCYTES ABSOLUTE MAN 1.03 K/mm3 (0.84-5.20); LYMPHOCYTES PERCENT MAN 12 % (21-46); METAMYELOCYTE ABSOLUTE MAN 0.25 K/mm3 (0.00-0.00); METAMYELOCYTE PERCENT MAN 3 % (0-0); MONOCYTES ABSOLUTE MAN 0.08 K/mm3 (0.16-1.47); MONOCYTES PERCENT MAN 1 % (4-13); MYELOCYTE ABSOLUTE MAN 0.17 K/mm3 (0.00-0.00); MYELOCYTE PERCENT MAN 2 % (0-0); NEUTROPHILS ABSOLUTE MAN 6.36 K/mm3 (1.96-9.15); SEG NEUTROPHILS PERCENT MAN 71 % (41-73); TOTAL CELLS COUNTED 100
--- NOTE | 2022-03-12 06:58 | NUR ---
[facility] AND CHARTS/ORDERS NOT ACCESSIBLE FROM [id number] - [id number] 03/11/22
--- NOTE | 2022-03-12 18:08 | NUR ---
PT SUMMARY: NO ACUTE CHANGE FOR THE SHIFT VITALS HAS BEEN STABLE ON RA ALL SHIFT, CPAP WHEN SLEEPING, PT TRANSITIONED TO MEDICAL STATUS WITH TELE. PT FOR UPPER ENDOSCOPY TOMORROW 03/14/22 FOR POLYP REMOVAL, NPO AFTER MIDNIGHT ONLY WATER AND ICE CHIPS. PT MADE AWARE SO DAUGHTER AT BEDSIDE. PT NO COMPLAINS FOR THE SHIFT PT HAS BEEN UP IN THE CHAIR BREAKFAST AND LUNCH TIME, PT ALSO RECEIVED A BEDBATH. PT HAS REDNESS IN GROIN AND COCCYX BARRIER CREAM AND MEPILEX APPLIED FOR COMFORT. PT REMAIN ON FULL LIQUID DIET, NO BM REPORTED, NO ACTIVE BLEEDING WELL. SALDANA DRAINING PATENT VIA GRAVITY. NO OTHER ISSUES REPORTED, ABLE TO MAKE NEEDS KNOWN, WILL MONITOR TO ONCOMING SHIFT
[2022-03-13 04:47] LABS: Hematocrit 27.9 % (37.0-53.0); Hemoglobin 8.2 g/dL (13.5-17.5); Mean Corpuscular HGB 27.2 pg (26.0-34.0); Mean Corpuscular HGB Conc 29.4 g/dL (31.5-36.5); Mean Corpuscular Volume 92 fL (80-100); NRBC ABSOLUTE 0.05 K/mm3 (0.00-0.02); NRBC Auto 0.5 /100 WBC (0.0-0.2); Platelet Count 288 K/mm3 (150-400); RDW Coefficient Variation 20.2 % (11.7-14.2); RDW Standard Deviation 65.1 fL (35.1-46.3); Red Blood Cell Count 3.02 M/mm3 (4.30-5.90); White Blood Cell Count 9.98 K/mm3 (4.00-11.30)
[2022-03-13 05:15] LABS: Bun/Creatinine Ratio 23.1 (12.0-20.0); Calcium, Blood 10.8 mg/dL (8.5-10.1); Creatinine, Blood 1.3 mg/dL (0.60-1.20); Potassium, Blood 4.7 mmol/L (3.5-5.5)
[2022-03-13 05:39] LABS: BAND PERCENT MAN 4 % (0-8); BASOPHILS ABSOLUTE MAN 0.09 K/mm3 (0.00-0.23); BASOPHILS PERCENT MAN 1 % (0-2); EOSINOPHILS ABSOLUTE MAN 0.29 K/mm3 (0.00-0.68); EOSINOPHILS PERCENT MAN 3 % (0-6); LYMPHOCYTES ABSOLUTE MAN 2.39 K/mm3 (0.84-5.20); LYMPHOCYTES PERCENT MAN 24 % (21-46); METAMYELOCYTE ABSOLUTE MAN 0.09 K/mm3 (0.00-0.00); METAMYELOCYTE PERCENT MAN 1 % (0-0); MONOCYTES ABSOLUTE MAN 0.29 K/mm3 (0.16-1.47); MONOCYTES PERCENT MAN 3 % (4-13); NEUTROPHILS ABSOLUTE MAN 6.78 K/mm3 (1.96-9.15); SEG NEUTROPHILS PERCENT MAN 64 % (41-73); TOTAL CELLS COUNTED 100
--- NOTE | 2022-03-13 05:41 | NUR ---
SHIFT SUMMARY NO ACUTE CHANGES THIS SHIFT. PT ALERT, ANSWERS QUESTIONS APPROPRIATELY. ABLE TO HELP REPOSITION IN BED. SP02>90% ON CPAP WHILE SLEEPING. VSS, MOSTLY AFIB, HR MOSTLY 70'S-80'S. SALDANA CATHETER DRAINING YELLOW URINE TO GRAVITY. PT SLEPT MOST OF NIGHT. NPO FOR AM PROCEDURE. CALL LIGHT IN REACH.
--- NOTE | 2022-03-13 17:26 | NUR ---
03/13/22 1726 Concepción Singh PRIOR TO PROCEDURE History, Chart, Medications and Allergies reviewed before start of procedure.LIDOCAINE SPRAY AND VISCOUS TO BACK OF THROAT PER DR TREVIZO. DR TREVIZO PROVIDING ANESTHESIA
--- NOTE | 2022-03-13 17:58 | NUR ---
PT SUMMARY: PT CURRENTLY TAKEN TO DAY SURGERY FR UPPER GI ENDOSCOPY PROCEDURE FOR LARGE POLYP REMOVAL. PT HAS BEEN PLEASANT AND COOPERATIVE, VITALS HAS BEEN STABLE, DENIES ANY PAIN AND DISCOMFORT FOR THE SHIFT, C/O CONSISTENT COUGH PT STATED HE FEELS CONGESTED BUT IS NOT COUGHING ANYTHING UP, MUCINEX ORDERED PRN WAS GIVEN ONCE FOR THE SHIFT, PT REPORTED EFFECTIVENESS. PT ALSO HAS LARGE HARD BM FOR THE SHIFT. PT HAS BEEN GETTING UP IN THE CHAIR/COMMODE VIA WALKER ONE PERSON ASSIST WITH NO ISSUES. DAUGHTER HAS BEEN AT BEDSIDE ALL SHIFT WAITING FOR PROCEDURE TO BE DONE, NO OTHER ISSUES ENCOUNTERED FOR THE SHIFT, WILL REPORT TO ONCOMING SHIFT
--- NOTE | 2022-03-13 18:21 | NUR ---
History, Chart, Medications and Allergies reviewed before start of procedure. PT LS COURSE T/O. Patient confirms NPO status and agrees with scheduled surgery. Pre-Op teaching done. Pt verbalizes understanding. DUONEB GIVEN. PT GIVEN MEDS PER DOCTORS ORDERS. REPORT TO LILIANA King
--- NOTE | 2022-03-13 19:30 | NUR ---
DR MORALES AT BEDSIDE IN DAY SURGERY STEP RECOVERY SPEAKING WITH PATIENT AND PATIENT'S DAUGHTER ABOUT RESULTS OF EGD.
--- NOTE | 2022-03-13 19:59 | NUR ---
care assumption Report received from Lashanda in surgical recovery, pt post EGD. Pt arrived to room, slid from surgical gurney to PCU bed by 4 staff. Pt alert but sleepy, slow to respond. Accompanied by daughter. Sp02>90% on RA. Telemetry shows afib, hr 80's, vss. Recovery vitals in progress. Pt asked for drink, educated on being NPO until safe d/t procedure sedation and throat numbing. Call light in reach.
[2022-03-14 04:17] LABS: Hemoglobin 7.9 g/dL (13.5-17.5); Mean Corpuscular HGB 27.1 pg (26.0-34.0); Mean Corpuscular HGB Conc 29.3 g/dL (31.5-36.5); Mean Corpuscular Volume 93 fL (80-100); Mean Platelet Volume 10.1 fL (9.1-12.4); NRBC ABSOLUTE 0.03 K/mm3 (0.00-0.02); NRBC Auto 0.3 /100 WBC (0.0-0.2); Platelet Count 260 K/mm3 (150-400); RDW Coefficient Variation 20.5 % (11.7-14.2); RDW Standard Deviation 65.8 fL (35.1-46.3); Red Blood Cell Count 2.91 M/mm3 (4.30-5.90); White Blood Cell Count 9.82 K/mm3 (4.00-11.30)
[2022-03-14 04:31] LABS: Bun/Creatinine Ratio 21.2 (12.0-20.0); Creatinine, Blood 1.37 mg/dL (0.60-1.20); Potassium, Blood 4.8 mmol/L (3.5-5.5)
[2022-03-14 04:43] LABS: BAND PERCENT MAN 1 % (0-8); BASOPHILS PERCENT MAN 0 % (0-2); EOSINOPHILS ABSOLUTE MAN 0.29 K/mm3 (0.00-0.68); EOSINOPHILS PERCENT MAN 3 % (0-6); LYMPHOCYTES ABSOLUTE MAN 2.55 K/mm3 (0.84-5.20); LYMPHOCYTES PERCENT MAN 26 % (21-46); METAMYELOCYTE ABSOLUTE MAN 0.09 K/mm3 (0.00-0.00); METAMYELOCYTE PERCENT MAN 1 % (0-0); MONOCYTES ABSOLUTE MAN 0.39 K/mm3 (0.16-1.47); MONOCYTES PERCENT MAN 4 % (4-13); MYELOCYTE ABSOLUTE MAN 0.58 K/mm3 (0.00-0.00); MYELOCYTE PERCENT MAN 6 % (0-0); NEUTROPHILS ABSOLUTE MAN 5.89 K/mm3 (1.96-9.15); SEG NEUTROPHILS PERCENT MAN 59 % (41-73); TOTAL CELLS COUNTED 100
[2022-03-14] MEDS ORDERED: GUAI600T33 PO (14:04)
[2022-03-14] MEDS ORDERED: THERA-D2000 UNIT PO (14:04)
--- NOTE | 2022-03-14 14:26 | NUR ---
UPDATE DISCHARGE INSTRUCTIONS PROVIDED TO PATIENT. PT EDUCATED ON MEDICATIONS AND ALL CHANGES. ALL QUESTIONS ANSWERED. PT TO BE TAKEN OUT BY WC
== END 2022-03-14 14:30 | disposition home health service (06) | DRG 380 ==
LOC: ER 17:05 → PCU 03-09 02:02
PROVIDERS: Family Medicine; Physician Assistant; Student in an Organized Health Care Education/Training Program; ADMIT Internal Medicine
PROC: 30233N1 Transfusion of Nonautologous Red Blood Cells into Peripheral Vein, Percutaneous Approach (ICD-10-PCS; principal; 2022-03-09)
PROC: 8E0ZXY6 Isolation (ICD-10-PCS; 2022-03-09)
PROC: 0DJ08ZZ Inspection of Upper Intestinal Tract, Via Natural or Artificial Opening Endoscopic (ICD-10-PCS; 2022-03-10)
PROC: 0DB78ZZ Excision of Stomach, Pylorus, Via Natural or Artificial Opening Endoscopic (ICD-10-PCS; 2022-03-13)
PROC: 5A09357 Assistance with Respiratory Ventilation, Less than 24 Consecutive Hours, Continuous Positive Airway Pressure (ICD-10-PCS; 2022-03-13)
DX: K31.1 Adult hypertrophic pyloric stenosis (principal); J12.82 Pneumonia due to coronavirus disease 2019; U07.1 COVID-19; K92.1 Melena; N17.9 Acute kidney failure, unspecified; C79.51 Secondary malignant neoplasm of bone; D62 Acute posthemorrhagic anemia; Z68.41 Body mass index [BMI] 40.0-44.9, adult; R33.9 Retention of urine, unspecified; N18.30 Chronic kidney disease, stage 3 unspecified; I95.9 Hypotension, unspecified; M79.89 Other specified soft tissue disorders; I51.7 Cardiomegaly; I12.9 Hypertensive chronic kidney disease with stage 1 through stage 4 chronic kidney disease, or unspecified chronic kidney disease; E11.22 Type 2 diabetes mellitus with diabetic chronic kidney disease; I48.0 Paroxysmal atrial fibrillation; M54.50 Low back pain, unspecified; G89.29 Other chronic pain; E78.00 Pure hypercholesterolemia, unspecified; M10.9 Gout, unspecified; J44.9 Chronic obstructive pulmonary disease, unspecified; R74.01 Elevation of levels of liver transaminase levels; R74.8 Abnormal levels of other serum enzymes; K74.60 Unspecified cirrhosis of liver; E66.9 Obesity, unspecified; I35.0 Nonrheumatic aortic (valve) stenosis; E11.51 Type 2 diabetes mellitus with diabetic peripheral angiopathy without gangrene; G47.33 Obstructive sleep apnea (adult) (pediatric); H02.89 Other specified disorders of eyelid; F41.9 Anxiety disorder, unspecified; K64.1 Second degree hemorrhoids; M19.90 Unspecified osteoarthritis, unspecified site; B35.1 Tinea unguium; Z79.01 Long term (current) use of anticoagulants; Z87.19 Personal history of other diseases of the digestive system; Z88.8 Allergy status to other drugs, medicaments and biological substances; Z91.018 Allergy to other foods; Z88.1 Allergy status to other antibiotic agents; Z79.82 Long term (current) use of aspirin; Z79.899 Other long term (current) drug therapy; Z79.811 Long term (current) use of aromatase inhibitors; Z79.4 Long term (current) use of insulin; Z98.890 Other specified postprocedural states; Z87.891 Personal history of nicotine dependence; Z99.81 Dependence on supplemental oxygen; Z85.46 Personal history of malignant neoplasm of prostate; Z92.3 Personal history of irradiation
CPT/HCPCS: 0241U; 36430; 51702; 51798; 71045; 80048; 80053; 81001; 82272; 82947; 83605; 83880; 84145; 85014; 85018; 85025; 85027; 86850; 86900; 86901; 86923; 88305; 88341; 88342; 93970; 94660; 94762; 96365-59; 96366-59; 96375-59; 97110; 97116; 97162; 97530; 99285-25; A9270; C1751; C8929; C9113; J0696; J2354; J2704; J7030; J7040; J7050; J7120; P9016; Q9957

== ENCOUNTER 2022-03-27 16:36 | Inpatient (IN) | payer OTHER ==
[~2022-03-27] VITALS: Ht 167.6 cm; Wt 127.4 kg
[~2022-03-27 16:36] MED LIST changes: -Acetaminophen650 M1 PO
[2022-03-27 17:12] LABS: Mean Corpuscular HGB 27.7 pg (26.0-34.0); Mean Corpuscular HGB Conc 29.5 g/dL (31.5-36.5); Mean Corpuscular Volume 94 fL (80-100); Mean Platelet Volume 10.1 fL (9.1-12.4); Platelet Count 275 K/mm3 (150-400); RDW Coefficient Variation 21.3 % (11.7-14.2); RDW Standard Deviation 72.4 fL (35.1-46.3); Red Blood Cell Count 2.13 M/mm3 (4.30-5.90); White Blood Cell Count 9.51 K/mm3 (4.00-11.30)
[2022-03-27 17:33] LABS: Hemoglobin 5.9 g/dL (13.5-17.5)
[2022-03-27 17:40] LABS: Albumin, Blood 2.3 g/dL (3.4-5.0); Albumin/Globulin Ratio 0.6 (0.8-1.8); Bilirubin, Total 0.6 mg/dL (0.1-1.0); Bun/Creatinine Ratio 22.3 (12.0-20.0); Calcium, Blood 9.9 mg/dL (8.5-10.1); Creatinine, Blood 3.54 mg/dL (0.60-1.20); Globulin, Blood 3.9 g/dL (2.2-4.0); Potassium, Blood 4.4 mmol/L (3.5-5.5); Total Protein, Blood 6.2 g/dL (6.4-8.2)
[2022-03-27 17:48] LABS: BASOPHILS PERCENT MAN 0 % (0-2); EOSINOPHILS ABSOLUTE MAN 0.28 K/mm3 (0.00-0.68); EOSINOPHILS PERCENT MAN 3 % (0-6); LYMPHOCYTES ABSOLUTE MAN 1.71 K/mm3 (0.84-5.20); LYMPHOCYTES PERCENT MAN 18 % (21-46); METAMYELOCYTE ABSOLUTE MAN 0.09 K/mm3 (0.00-0.00); METAMYELOCYTE PERCENT MAN 1 % (0-0); MONOCYTES ABSOLUTE MAN 0.47 K/mm3 (0.16-1.47); MONOCYTES PERCENT MAN 5 % (4-13); NEUTROPHILS ABSOLUTE MAN 6.94 K/mm3 (1.96-9.15); SEG NEUTROPHILS PERCENT MAN 73 % (41-73); TOTAL CELLS COUNTED 100
[2022-03-27 17:48] LABS: International Normalized Ratio 1.4; Prothrombin Time Results 14.4 Sec (9.7-11.5)
[2022-03-27 22:12] LABS: Influenza A, PCR NEGATIVE (NEGATIVE); Influenza B, PCR NEGATIVE (NEGATIVE); Resp Syncytial Virus, PCR NEGATIVE (NEGATIVE)
[2022-03-27 22:21] LABS: SARS-Cov-2 (COVID-19) PCR, MMC POSITIVE (NEGATIVE)
[2022-03-27 23:27] LABS: Hematocrit 22.8 % (37.0-53.0)
[2022-03-28] MEDS ORDERED: Acetaminophen650 M1 PO (00:31)
--- NOTE | 2022-03-28 01:16 | NUR ---
CALL TO HOSPITALIST RESIDENT DR. MO PATIENT ADMITTED WITH AFIB RVR. RATES PERSISTING INTO THE 120S-130S. REQUESTED INTERVENTION. PATIENT ADMITTED WITH YEAST/REDNESS TO BILAT GROIN AND UNDER PANNUS. REQUESTED DESENEX.
[2022-03-28 04:25] LABS: BASOPHILS ABSOLUTE AUTO 0.04 K/mm3 (0.00-0.23); BASOPHILS PERCENT AUTO 1 % (0-2); EOSINOPHILS ABSOLUTE AUTO 0.25 K/mm3 (0.00-0.68); EOSINOPHILS PERCENT AUTO 3 % (0-6); Hematocrit 22.5 % (37.0-53.0); Hemoglobin 6.6 g/dL (13.5-17.5); IMMATURE GRAN ABSOLUTE AUTO 0.41 K/mm3 (0.00-0.10); IMMATURE GRAN PERCENT AUTO 5 % (0-1); LYMPHOCYTES ABSOLUTE AUTO 1.29 K/mm3 (0.84-5.20); LYMPHOCYTES PERCENT AUTO 16 % (21-46); MONOCYTES ABSOLUTE AUTO 0.61 K/mm3 (0.16-1.47); MONOCYTES PERCENT AUTO 8 % (4-13); Mean Corpuscular HGB 27.7 pg (26.0-34.0); Mean Corpuscular HGB Conc 29.3 g/dL (31.5-36.5); Mean Corpuscular Volume 95 fL (80-100); Mean Platelet Volume 10.4 fL (9.1-12.4); NEUTROPHILS ABSOLUTE AUTO 5.26 K/mm3 (1.96-9.15); NEUTROPHILS PERCENT AUTO 67 % (41-73); NRBC ABSOLUTE 0.02 K/mm3 (0.00-0.02); NRBC Auto 0.3 /100 WBC (0.0-0.2); Platelet Count 231 K/mm3 (150-400); RDW Coefficient Variation 20.4 % (11.7-14.2); RDW Standard Deviation 69.7 fL (35.1-46.3); Red Blood Cell Count 2.38 M/mm3 (4.30-5.90); White Blood Cell Count 7.86 K/mm3 (4.00-11.30)
--- NOTE | 2022-03-28 04:33 | NUR ---
PT MOVED TO THE SIDE OF THE BED IN A DANGLE POSITION IN ORDER TO STAND AND USE THE URINAL WITH STAFF ASSISTANCE. HEART RATE DROPPED INTO THE MID 30S-LOW 40S, SpO2 DROPPED TO 78% AND PATIENT REPORTED DIZZINESS AND FEELING WEAK. PATIENT RETURNED TO BED WITH THE ASSISTANCE OF ME AND ROSA HOPE. PT REPORTS THAT HE HAS HAD THIS SAME ISSUE OFF AND ON AT HOME FOR THE PAST 3 MONTHS. IT HAS HAPPENED SO FREQUENTLY THAT HE DOES NOT STAND UP WITHOUT A FAMILY MEMBER PRESENT NOW. ADVISED PATIENT THAT STAFF WILL ASSIST HIM WITH USE OF THE URINAL IN THE BED PATIENT IS NOT ABLE TO USE IT ON HIS OWN. PATIENT AGREED WITH PLAN OF CARE. BED ALARM RE-ACTIVATED.
[2022-03-28 04:46] LABS: Albumin/Globulin Ratio 0.5 (0.8-1.8); Bilirubin, Total 0.7 mg/dL (0.1-1.0); Bun/Creatinine Ratio 21.8 (12.0-20.0); Calcium, Blood 9.5 mg/dL (8.5-10.1); Creatinine, Blood 3.49 mg/dL (0.60-1.20); Globulin, Blood 3.8 g/dL (2.2-4.0); Potassium, Blood 4.5 mmol/L (3.5-5.5); Total Protein, Blood 5.8 g/dL (6.4-8.2)
--- NOTE | 2022-03-28 04:58 | NUR ---
CALL TO HOSPITALIST RESIDENT CHEPE HEMOGLOBIN/HEAMATOCRIT DROPPED FROM 7.0/22.8 TO 6.6/22.5 ORDERS RECEIVED TO TRANSFUSE 1 UNIT PACKED RED BLOOD CELLS
--- NOTE | 2022-03-28 06:25 | NUR ---
PT ARRIVED TO PCU 16 FROM THE ER AT 23:56 LAST NIGHT. HE HAD RECEIVED 1 UNIT OF PACKED RED BLOOD CELLS IN THE ER AND HIS HOMGLOBIN IMPROVED FROM 5.8 TO 7.0. NO ORDERS TO TRANSFUSE ANY ADDITIONAL UNITS AT THAT TIME. THIS MORNING HIS SERUM HEMOGLOBIN HAD DROPPED TO 6.6 AND ORDER WAS RECEIVED FOR TRANSFUSION OF AN ADDITIONAL UNIT OF PACKED RED BLOOD CELLS. CURRENTLY AWAITING NOTIFICATION OF BLOOD READINESS FROM THE BLOOD BANK. MR. HANNA IS SEVERELY DECONDITIONED AND IS DEPENDENT UPON HIS SISTER, [id number] AND HER DAUGHTER FOR ASSISTANCE WITH MOST ALL ADLs AT HOME. HE REPORTS HAVING HAD EPISODES OF DIZZINESS AND WEAKNESS FOR 3 MONTHS NOW. HE WAS RECENTLY AT [facility] AND TESTED POSITIVE FOR COVID. PER INFECTIOUS DISEASE THAT WAS GREATER THAN 20 DAYS AGO AND PATIENT MAY BE TAKEN OFF ISOLATION PRECAUTIONS BECAUSE THE PCR TEST CONDUCTED IN THE ER IS "JUST PICKING UP REMNANTS" OF THE VIRUS FROM PREVIOUS INFECTION. PER CONVERSATION WITH TAFFY CANDY MAKER SYDNEY, AN ANTIGEN TEST IS NECESSARY TO CONFIRM THE ABSENCE OF THE VIRUS. WILL PASS ON TO DAYSHIFT RN TO DISCUSS THIS WITH ATTENDING PHYSICIAN ABOUT NEXT STEPS, ESPECIALLY CONSIDERING THE PATIENT HAS A PRODUCTIVE COUGH, INCREASED WORK OF BREATHING, AND IS REQUIRING SUPPLEMENTAL OXYGEN. HE IS ON ROOM AIR AT BASELINE.
--- NOTE | 2022-03-28 11:21 | NUR ---
PT FINISHED I UNIT PRBC'S AT THIS TIME. PT TOLERATED THE INFUSION WELL
[2022-03-28 12:18] LABS: Hematocrit 23.3 % (37.0-53.0); Hemoglobin 7.2 g/dL (13.5-17.5)
--- NOTE | 2022-03-28 13:56 | NUR ---
PT TAKEN TO DAY SURGERY FOR EGD. PT WAS AWAKE/ALERT ON O2 @ 2L/MIN
--- NOTE | 2022-03-28 14:23 | NUR ---
03/28/22 1423 Reinaldo Manrique History, Chart, Medications and Allergies reviewed before start of procedure.MONITOR INTACT WITH CONTINUOUS PULSE OXIMETRY AND INTERMITTENT BP.3-LEAD EKG REVIEWED WITH PHYSICIAN PRIOR TO START OF PROCEDURE.O2 VIA POM INTACT THROUGHOUT SEDATION/PROCEDURE. See Anesthesia record.
--- NOTE | 2022-03-28 15:03 | NUR ---
PT BACK FROM EGD SOMEWHAT DROWSY, VSS AT THIS TIME. CPAP REAPPLIED. CALL LIGHT IN REACH
--- NOTE | 2022-03-28 15:46 | NUR ---
PT A/OX3, PLEASANT AND COOPERATIVE. PT BACK FROM EGD SLEEPY. VSS AT THIS TIME. PTS SON AT THE BEDSIDE. PT IS WEARUING CPAP AT THIS TIME. REPORT GIVEN TO REINA DELA CRUZ. CALL LIGHT IN REACH
--- NOTE | 2022-03-28 16:40 | NUR ---
ASSUMED CARE ASSUMED CARE OF PT AT APPROXIMATELY 1530. PT A&Ox4, VSS, SpO2> 92% RA, A-FIB IN 90's. PT DENIES CP AND SOB. BED IN LOWEST POSITION, CALL LIGHT IN REACH, FAMILY AT BEDSIDE. PT RESTING COMFORTABLY.
--- NOTE | 2022-03-28 18:11 | NUR ---
END OF SHIFT NOTE ASSUMED CARE OF PT AT APPROXIMATELY 1530. PT A&Ox3, VSS, SpO2> 92% ON 2L NC - RA, A-FIB 80's. NO SIGNS OF BLEEDING. PT RESTING COMFORTABLY. CALL LIGHT IN REACH
[2022-03-28 19:31] LABS: Hematocrit 24.5 % (37.0-53.0); Hemoglobin 7.4 g/dL (13.5-17.5)
[2022-03-29 04:15] LABS: Hematocrit 24.3 % (37.0-53.0); Hemoglobin 7.4 g/dL (13.5-17.5); Mean Corpuscular HGB 28.4 pg (26.0-34.0); Mean Corpuscular HGB Conc 30.5 g/dL (31.5-36.5); Mean Corpuscular Volume 93 fL (80-100); Mean Platelet Volume 9.8 fL (9.1-12.4); NRBC ABSOLUTE 0.02 K/mm3 (0.00-0.02); NRBC Auto 0.2 /100 WBC (0.0-0.2); Platelet Count 265 K/mm3 (150-400); RDW Coefficient Variation 20.7 % (11.7-14.2); RDW Standard Deviation 69.6 fL (35.1-46.3); Red Blood Cell Count 2.61 M/mm3 (4.30-5.90); White Blood Cell Count 10.06 K/mm3 (4.00-11.30)
[2022-03-29 04:37] LABS: Source, Urine Foley catheter
[2022-03-29 04:39] LABS: Bilirubin, Urine Neg (Neg); Blood, Urine 3+ (Neg); Glucose Qualitative, Urine Neg (Neg); Ketones, Urine Neg (Neg); Leukocyte Esterase, Urine Neg (Neg); Nitrite, Urine Neg (Neg); Protein, Urine 1+ (Neg); Urobilinogen, Urine NORM (Normal)
[2022-03-29 05:03] LABS: BAND PERCENT MAN 9 % (0-8); BASOPHILS PERCENT MAN 1 % (0-2); Bun/Creatinine Ratio 21.6 (12.0-20.0); Calcium, Blood 9.5 mg/dL (8.5-10.1); Creatinine, Blood 3.98 mg/dL (0.60-1.20); EOSINOPHILS PERCENT MAN 8 % (0-6); LYMPHOCYTES PERCENT MAN 12 % (21-46); METAMYELOCYTE PERCENT MAN 1 % (0-0); MONOCYTES PERCENT MAN 6 % (4-13); MYELOCYTE PERCENT MAN 1 % (0-0); NEUTROPHILS ABSOLUTE MAN 7.14 K/mm3 (1.96-9.15); Percent Saturation 27.1 % (20.0-50.0); SEG NEUTROPHILS PERCENT MAN 62 % (41-73); TOTAL CELLS COUNTED 100
[2022-03-29 05:19] LABS: Appearance, Urine Clear (Clear); Color, Urine Yellow (P-Yellow)
[2022-03-29 05:20] LABS: Bacteria Not Seen /hpf; Red Blood Cells, Urine 0-2 /hpf (0-2); Squamous Epithelial Cells Not Seen /hpf (Few); White Blood Cells, Urine Not Seen /hpf (0-5)
--- NOTE | 2022-03-29 08:00 | NUR ---
ASSUMPTION OF CARE ELBERT DELA CRUZ AND RENITA DELA CRUZ ASSUMED CARE OF PATIENT AT 0700. REPORT TAKEN FROM VALERIANO DELA CRUZ. PT RESTING COMFORTABLY ON 2L NC. VSS. BED IN LOWEST POSITION AND CALL LIGHT IN REACH.
[2022-03-29 14:02] LABS: Bun/Creatinine Ratio 19.9 (12.0-20.0); Creatinine, Blood 4.28 mg/dL (0.60-1.20); Potassium, Blood 4.9 mmol/L (3.5-5.5)
[2022-03-29 15:06] LABS: Hematocrit 23.8 % (37.0-53.0); Hemoglobin 7.3 g/dL (13.5-17.5)
--- NOTE | 2022-03-29 17:27 | NUR ---
PATIENT SUMMARY PATIENT HAS BEEN ALERT AND ORIENTED X4 DURING THE SHIFT. SLOW TO RESPOND AT TIMES. O2 SATS HAVE BEEN >94% ON RA DURING THE SHIFT. PATIENT PUTS ON CPAP MASK WITH 2L WHEN HE LAYS FLAT FOR A NAP. SBP 120-130S. AFIB NOTED ON THE MONITOR WITH HR 80-90S. PATIENT REMAINS ON A CLEAR LIQUID DIET. HGB REMAINS STABLE AT 7.3. SALDANA CATHETER IN PLACE DRAINING YELLOW URINE. PATIENT HAD NOTABLE BLOOD IN TUBING AFTER TRANSFER TO [facility]. BLADDER WAS FLUSHED WITH 100MLS OF STERILE WATER WITH CLEAR FLUID DRAINAGE NOTED AFTER CATHETER BAG WAS RE-ATTACHED. FREIGHT CLAIM INVESTIGATOR AT BEDSIDE FOR A RENAL ULTRASOUND CURRENTLY. LR INFUSING AT 150 MLS/HR INTO 20G RAC IV PER MD ORDER. BED IN LOWEST POSITION AND CALL LIGHT WITHIN REACH. WILL CONTINUE TO MONITOR UNTIL SHIFT CHANGE AT 1900.
--- NOTE | 2022-03-29 18:09 | NUR ---
PATIENT UPDATE CALL PLACED TO MD CANDELARIA REGARDING THE PATIENT'S INCREASED BLE EDEMA AND LOW URINE OUTPUT (150 MLS). PATIENT HAS BEEN RECEIVING LR @ 150 MLS/HR AND HAD GOTTEN 750 MLS OUT OF 1000 MLS ORDERED. EDEMA HAD PREVIOUSLY HAD 2+ EDEMA DURING BEGINNING OF SHIFT WITH INCREASED PITTING EDEMA NOW. SALDANA CATHETER IS DRAINING WELL WITH NO SIGNS OF BLOCKAGE. MD CANDELARIA WITH ORDERS TO STOP THE FLUIDS AND MONITOR THE PATIENT FOR MORE SIGNS/SYMPTOMS OF FLUID OVERLOAD. FLUIDS STOPPED AND IV SALINE LOCKED. CONTINUOUS [address] BED IN LOWEST POSITION AND CALL LIGHT WITHIN REACH.
[2022-03-30 04:07] LABS: Hematocrit 25.2 % (37.0-53.0); Hemoglobin 7.7 g/dL (13.5-17.5); Mean Corpuscular HGB 28.1 pg (26.0-34.0); Mean Corpuscular HGB Conc 30.6 g/dL (31.5-36.5); Mean Corpuscular Volume 92 fL (80-100); NRBC ABSOLUTE 0.02 K/mm3 (0.00-0.02); NRBC Auto 0.2 /100 WBC (0.0-0.2); Platelet Count 282 K/mm3 (150-400); RDW Coefficient Variation 20.7 % (11.7-14.2); RDW Standard Deviation 68.6 fL (35.1-46.3); Red Blood Cell Count 2.74 M/mm3 (4.30-5.90); White Blood Cell Count 11.05 K/mm3 (4.00-11.30)
[2022-03-30 04:24] LABS: Bun/Creatinine Ratio 17.8 (12.0-20.0); Calcium, Blood 9.1 mg/dL (8.5-10.1); Creatinine, Blood 5.06 mg/dL (0.60-1.20)
[2022-03-30 04:37] LABS: BAND PERCENT MAN 1 % (0-8); BASOPHILS PERCENT MAN 0 % (0-2); EOSINOPHILS ABSOLUTE MAN 0.55 K/mm3 (0.00-0.68); EOSINOPHILS PERCENT MAN 5 % (0-6); LYMPHOCYTES ABSOLUTE MAN 1.43 K/mm3 (0.84-5.20); LYMPHOCYTES PERCENT MAN 13 % (21-46); METAMYELOCYTE ABSOLUTE MAN 0.11 K/mm3 (0.00-0.00); METAMYELOCYTE PERCENT MAN 1 % (0-0); MONOCYTES ABSOLUTE MAN 0.44 K/mm3 (0.16-1.47); MONOCYTES PERCENT MAN 4 % (4-13); SEG NEUTROPHILS PERCENT MAN 76 % (41-73); TOTAL CELLS COUNTED 100
--- NOTE | 2022-03-30 08:13 | NUR ---
ASSUMPTION OF CARE ELBERT RN AND ERIC RN ASSUMED CARE OF PATIENT AT 0700. REPORT TAKEN FROM VALERIANO DELA CRUZ. PATIENT ASSISTED TO BED FROM RECLINER. VSS. MD HOROWITZ AT BEDSIDE AT 0800 TO DISCUSS PLAN FOR DOSE OF BUMEX DUE TO EDEMA IN BLE. AWAITING ORDERS AT THIS TIME. PATIENT IN BED DRINKING LIQUID DIET BREAKFAST. BED IN LOWEST CONDITION AND CALL LIGHT WITHIN REACH.
--- NOTE | 2022-03-30 09:42 | NUR ---
CARE ASSUMPTION THIS RN ASSUMED AND ELBERT RN ASSUMED CARE AT 0700 FROM VALERIANO RN. VSS. TELE AFIB 94. PATIENT IS ALERT AND ORIENTED X2-3. PATIENT WAS UNAWARE OF THE YEAR, STATED IT WAS 2022, WAS UNABLE TO TELL ME THE MONTH OR SEASON, BUT WAS ABLE TO TELL THIS RN DATE OF , WHERE THE PATIENT WAS AT AND WHO THE PRESIDENT IS. BLANQUITA. PATIENT LUNG SOUNDS ARE COARSE AND CONGESTED THROUGHOUT. SPO2 >95% ON 2L NC.PATIENT HAS A HARSH CONGESTED COUGH, BUT IS NOT COUGHING ANYTHING UP. PATIENT EDUCATED ON FLUTTER VALVE AND ENCOURAGED TO USE IT. PATIENT BECOMES SHORT OF BREATH WITH EXERTION OTHERWISE NO SHORTNESS OF BREATH. PATIENT REPROTS NO CHEST PAIN/PRESSURE. STRONG RADAIL AND PEDIS PULSES BILATERALLY. +2 EDEMA IN LOWER EXTREMITIES BILATERALLY. ABD IS ACTIVE NONTENDER. SALDANA CATH IN PLACE DRAINING WITH GRAVITY, CLEAR YELLOW. SKIN HAS SOME SCABS ON BACK WITH BANDAGES IN PLACE. MD HOROWITZ IN TO SEE PATIENT THIS AM AND WENT OVER DISCONTINUING BABY ASPIRIN AND THAT THE PATIENT DID NOT NEED TO BE TAKING IT AND IT IS CAUSING MORE HARMFUL EFFECTS THAN POSITIVE. MD HOROWITZ ALSO DISCUSSED STARTING BUMUX FOR THE PATIENT AND WOULD DISCUSS THIS WITH THE RESIDENTS FOLLOWING THE PATIENT WELL. AWAITING FOR ORDERS TO BE PLACED. PATIENT RECEIVED A FULL BED BATH AND LINEN CHANGED THIS MORNING NEEDING MODERATE ASSISTANCE. MORNING ADLS PERFORMED. PATIENT REPOSITIONED ONTO LEFT SIDE. CALL LIGHT WITHIN REACH AND BED IN LOWEST POSITION. PLAN OF CARE UP TO DATE.
--- NOTE | 2022-03-30 15:26 | NUR ---
PATIENT UPDATE PATIENT UP IN CHAIR GETTING BREATHING TREATMENT PER RT. CARLOS MANUEL MONSON TO ROOM TO SEE PATIENT. MD HOROWITZ EXPRESSED CONCERN ABOUT PATIENTS OUTPUT IN CATHETER BAG, WHICH IS ONLY AT APPROXIMATELY 300. STATED HE PLANS TO PUT IN FOR MORE BUMEX LATER THIS EVENING. ORDER FOR CONSULT FOR MD PONCE FOR CALE AND LOW URINE OUTPUT. THIS RN ATTEMPTED TO CALL IN CONSULT WITH ROSARIO BUT GOT HIS VOICEMAIL. LEFT A MESSAGE TO CALL THIS RN BACK AT [phone]. THIS RN WILL CALL BACK LATER THIS AFTERNOON IF NO RETURNED CALL RECEIVED FROM ROSARIO MONSON.
[2022-03-30 15:34] LABS: Bun/Creatinine Ratio 17.7 (12.0-20.0); Calcium, Blood 9.2 mg/dL (8.5-10.1); Creatinine, Blood 5.3 mg/dL (0.60-1.20); Potassium, Blood 4.8 mmol/L (3.5-5.5)
--- NOTE | 2022-03-30 16:23 | NUR ---
SHIFT SUMMARY PATIENT CONTINUES TO BE CALM AND COOPERATIVE WITH CARE. PATIENT WAS A&O X3 THIS SHIFT WITH CONFUSION ABOUT DATE/YEAR. PATIENT WAS STABLE ON RA WITH O2 SATURATIONS WHILE SITTING UP. WHEN PATIENT LAID DOWN OR TRANSFERRED, PATIENT WAS PUT ON 2L NC TO MAINTAIN O2 SATS >92%. NO COMPLAINTS OF PAIN. ENCOURAGED COUGHING AND CLEARING SECRETIONS WITH USE OF FLUTTER VALVE WITH LITTLE PROGRESS. PATIENT STILL DEMONSTRATES WEAK COUGH. CALL PLACED TO MD HOROWITZ EARLIER THIS AFTERNOON ABOUT PATIENT'S CONTINUED WORSENING LUNG SOUNDS AND INABILITY TO CLEAR SECRETIONS. MEDICATED PER EMAR. RT TEQUILA CONSULTED AND RECOMMENDED ALBUTEROL RATHER THAN THE HYPERTONIC SALINE NEBULIZER TREATMENT THAT MD HOROWITZ ORDERED INITIALLY. PROVIDER AGREED TO THIS AND ALBUTEROL BREATHING TREATMENT WAS GIVEN WITH NO VISIBLE RESULTS. THIS RN AND MD HOROWITZ DISCUSSED CONCERN ABOUT PATIENTS CONTINUED BLE EDEMA, RESPIRATORY STATUS, AND LOW URINE OUTPUT. CONSULT CALLED IN FOR ROSARIO MONSON FOR CALE AND LOW URINE OUTPUT. PATIENT WAS ENCOURAGED TO SIT IN CHAIR LONG POSSIBLE BUT COULD ONLY TOLERATE APPROXIMATLEY 3 HOURS AND INSISTED ON GETTING BACK INTO BED. CONTINUOUS EDUCATION PROVIDED BY THIS RN AND ERIC FUNK RN. BED BATH GIVEN THIS MORNING. BED IN LOWEST POSITION AND CALL LIGHT WITHIN REACH. FREQUENT CHECKS TO ENSURE SAFETY AND ENCOURAGE USE OF FLUTTER VALVE AND GOOD PULMONARY TOILETING. WILL CONTINUE TO MONITOR UNTIL SHIFT CHANGE AT 1900.
[2022-03-31 04:00] LABS: Hematocrit 24.9 % (37.0-53.0); Hemoglobin 7.6 g/dL (13.5-17.5)
[2022-03-31 04:22] LABS: Albumin, Blood 2.3 g/dL (3.4-5.0); Anion Gap 11 mmol/L (6-16); Blood Urea Nitrogen 95 mg/dL (8-24); Bun/Creatinine Ratio 16.7 (12.0-20.0); CO2, Blood 19 mmol/L (21-32); Calcium, Blood 9.1 mg/dL (8.5-10.1); Chloride, Blood 110 mmol/L (98-108); Creatinine, Blood 5.68 mg/dL (0.60-1.20); Glomerular Filtration Rate 10 (60-); Glucose, Blood 111 mg/dL (70-99); Magnesium, Blood 1.7 mg/dL (1.6-2.4); Phosphorus, Blood 6.2 mg/dL (2.5-4.9); Potassium, Blood 4.9 mmol/L (3.5-5.5); Sodium, Blood 140 mmol/L (136-145)
--- NOTE | 2022-03-31 05:36 | NUR ---
SHIFT SUMMARY PT ALERT, CONFUSED AT TIMES. CONTROLLED AFIB WITH STABLE BP. LUNG SOUNDS EXTREMELY COARSE THROUGHOUT BUT DO LESSEN WITH SECRETION EXPECTORATION WITH PROMPTING. LASIX 200MG PUSH AND LASIX GTT INITIATED AND ORDER VERIFIED WITH DR PONCE BEFORE ADMINISTERING. PHYSICIAN NOTIFIED OF AM LAB RESULTS AND 5001ML URINE UTPUT THIS AM VIA SALDANA. NO NEW ORDERS AT THIS TIME. PT ON 2L/CPAP OFF AND ON DEPENDING ON WAKEFULNESS. SALDANA PATENT. NO BM. AND OTHERWISE COOPERATIVE WITH CARE, SOMETIMES IMPULSIVE. BED ALARM IN PLACE. PT BEING REPOSITIONED BY STAFF.
--- NOTE | 2022-03-31 10:39 | NUR ---
CARE ASSUMPTION THIS RN ASSUMED CARE AT 0700 FROM [facility]A [facility]. VSS. TELE AFIB 80S. PATIENT IS ALERT AND ORIENTED X2-3. PATIENT IS CONFUSED AT TIMES AND HAS DIFFICULITY COMMUNICATING. PATIENT IS VERY SOFT SPOKEN AND DIFFICULT TO HEAR. PATIENT WAS PULLING ON SPO2 MONITOR CORD AND WHEN THIS RN ASKED HE STATED HE WAS TRYING TO GET HIS OXYGEN. THIS RN ASKED IF THE PATIENT WANTED TO GO BACK ON HIS CPAP AND HE NODDED YES. MD HOROWITZ AND CUSTOMS COMPLIANCE SPECIALIST CECILE IN ROOM AT THE TIME. PATIENT REPROTS NO PAIN. PATIENT REPORTS NO CHEST PAIN/PRESSURE. PATIENT HAS STRONG RADAIL PULSES BILATERALLY, FAINT PEDIS. PATIENT SKIN IS PALE AND FLAKY. PATIENT HAS RASH IN GROIN AND POWDER APPLIED THIS AM. PATIENT LUNG SOUNDS ARE TIGHT COARSE AND CONGESTED. PATIENT HAS A PRODUCTIVE COUGH THAT HAS CLEAR PINK TINGED MUCOUS. THIS RN HAS SUCTIONED THE PATIENT MULTIPLE TIMES. PATIENT HAS A WEAK COUGH AND IS UNABLE TO COUGH UP SECRETIONS. THIS RN HAS EDUCATED THE PATIENT ON DEEP COUGHING AND USING THE FLUTTER VALVE. THIS RN HAS THE PATIENT HEAD ELEVATED TO PREVENT THE PATIENT FROM ASPIRATING ON HIS SECRETIONS. SALDANA CATH IN PLACE DRAINING WITH GRAVITY, MINIMAL OUTPUT SO FAR. LASIX DRIP INFUSING. SEE EMAR. MD HOROWITZ INTO SEE PATIENT THIS AM, MD CANDELARIA IN TO SEE PATIENT THIS AM, AND [facility] PALLI[facility] IN TO SEE PATIENT THIS AM. DISCUSSED PLAN OF CARE. ANGIO PLANS TO GET IN CONTACT WITH PATIENTS DAUGHTER WHO IS POA. AWAITING TO FIGURE OUT WHO CAN PLACE PATIENT CATHETER FOR DIALYSIS AND TO HEAR BACK FROM DAUGHTER FROM [facility]. WILL CONTINUE TO DETERMINE WHO CAN PLACE CATH AND KEEP FAMILY AND PROVIDERS INFORMED. PATIENT REMAINS NPO AT THIS TIME. CALL LIGHT WITHIN REACH AND BED IN LOWEST POSITION.
--- NOTE | 2022-03-31 12:53 | NUR ---
Spiritual Care VIsit - Pt./Nurse request Pt. is resting when I arrive, and Spouse and another family member are present. Spouse displays evidence of concern over the serious nature of the Pts. condition and asks for Prayer. Prayed with Pt. and family. Some cathartic responses took place. Afterward Pt. did communicate with the cooker cleaner about his personal pb and belief. Spouse verbalized gratitude for the spiritual care visit.
--- NOTE | 2022-03-31 14:00 | NUR ---
Pt is currently lying back in bed, cpap in place. He is unable to make his needs and wants known due to new onset of cognitive defecits. Dr. Wilkins is going to assess pt for possibility of placing a central line. However, he may not be a good candidate due to his overall decline including metastatic prostate cancer, current mentation and increasing 02 dependance. His sister is at the bedside. Daughter is driving up from [place], expects to arrive around 1900 today. Family is agreeable to change pt from DNI to DNR after discussion with Dr. Styles. I obtained permission from pt's daughter and pt's sister. Palliative Care to remain involved.
--- NOTE | 2022-03-31 16:48 | NUR ---
SHIFT SUMMARY PATIENT CODE STATUS CHANGED TO DNR AFTER BON WITH PALLIATIVE CARE DISCUSSED THIS WITH THE PATIENTS DAUGHTER AND MD HOROWITZ AND HEALTHCARE TEAM. PATIENT DAUGHTER SHOULD BE ARRIVING THIS EVENING. TEMP CATH/CENTRAL LINE PLACED BY MD MIRZA FOR PATIENT TO HAVE DIALYSIS THIS AFTERNOON. AWAITING DIALYSIS NURSE. PATIENT HAS BEEN OFF AND ON THE CPAP THROUGHOUT THE DAY. PATIENT MENTATION HAS STAYED THE SAME, HAS MOMENTS OF CLARITY AND ALERTNESS AND THE MOMEMNTS OF CONFUSION. FAMILY HAS BEEN AT BED ALL DAY. CALL LIGHT WITHIN REACH AND BED IN LOWEST POSITION. WILL CONTINUE TO MONITOR AND OPROVIDE CARE UNTILLHAND OFF WITH NEXT SHIFT.
--- NOTE | 2022-03-31 22:00 | NUR ---
CALL TO DR. Rolanda PONCE. PATIENT UNDERWENT DIALYSIS THIS EVENING AND 2.7 LITERS OF FLUID WERE REMOVED. REQUESTED CLARIFICATION ON ORDER FOR IV FUROSEMIDE. THE ORDER IS STILL ACTIVE. HOWEVER, DR. PONCE'S PROGRESS NOTE FROM EARLIER TODAY STATES TO DISCONTINUE THE FUROSEMIDE INFUSION ONCE THE PERMACATH IS PLACED. ORDER RECEIVED TO DISCONTINUE FUROSEMIDE INFUSION.
--- NOTE | 2022-03-31 22:50 | NUR ---
CALL TO RT LIANNE TO REQUEST EVALUATION OF PATIENT FOR PRN ALBUTEROL INHALER AND NASOPHARYNGEAL SUCTIONING. PATIENT UNABLE TO EXPECTORATE SPUTUM FROM COUGH, IS TACHYPNEIC AND HAS SIGNIFICANT EXPIRATORY WHEEZE. ASSISTANCE PROVIDED TO LIANNE (RT) AT BEDSIDE WITH NASOPHARYNGEAL SUCTIONING. UPPER AIRWAY NOISE CLEARED FOLLOWING SUCTIONING AND PATIENT'S BREATHING IS LESS LABORED.
[2022-04-01 04:23] LABS: Hematocrit 24.1 % (37.0-53.0); Hemoglobin 7.3 g/dL (13.5-17.5)
[2022-04-01 04:57] LABS: Albumin, Blood 2.2 g/dL (3.4-5.0); Anion Gap 12 mmol/L (6-16); Blood Urea Nitrogen 67 mg/dL (8-24); Bun/Creatinine Ratio 14.1 (12.0-20.0); CO2, Blood 20 mmol/L (21-32); Calcium, Blood 9.3 mg/dL (8.5-10.1); Chloride, Blood 109 mmol/L (98-108); Creatinine, Blood 4.76 mg/dL (0.60-1.20); Glomerular Filtration Rate 12 (60-); Glucose, Blood 93 mg/dL (70-99); Magnesium, Blood 1.7 mg/dL (1.6-2.4); Phosphorus, Blood 5.4 mg/dL (2.5-4.9); Potassium, Blood 4.2 mmol/L (3.5-5.5); Sodium, Blood 141 mmol/L (136-145)
--- NOTE | 2022-04-01 11:00 | NUR ---
ASSUMPTION OF CARE ELBERT DELA CRUZ AND ERIC RN ASSUMED CARE OF PATIENT AT 0700. REPORT RECEIVED FROM JEANMARIE DELA CRUZ. UPON GETTING BEDSIDE REPORT FROM JEANMARIE DELA CRUZ IT WAS NOTED THAT THE PATIENT REMOVED O2 FROM FACE. O2 WAS INCREASED DUE TO DESATTING AT 2L. 4L OF O2 WITH NC KEPT PATIENT ABOVE 92%. VSS. PATIENT TAKEN TO DIALYSIS THIS AM 04/01/22 AT 9AM. FAMILY STOPPED BY TO SEE PATIENT AND STATED THEY WOULD RETURN WHEN PATIENT COMES BACK FROM DIALYSIS. PATIENT'S ORAL MEDICATIONS HELD THIS AM PER MD HOROWITZ DUE TO PATIENT'S CONTINUED DECONDITIONED STATE. PATIENT WAS A&O X2 THIS AM FOR THIS RN AND NOTABLY WEAK FROM PREVIOUS DAYS 03/29- THAT THIS RN CARED FOR THE PATIENT. PATIENT NPO AWAITING SPEECH EVAL. PALLIATIVE CARE CONSULT ON BOARD.
--- NOTE | 2022-04-01 12:18 | NUR ---
PATIENT UPDATE PATIENT RETURNED FROM DIALYSIS AT 1200. VSS. RT TO BEDSIDE TO CHANGE PATIENT OVER TO CPAP AND CHANGE SETTING TO GIVE PATEINT MORE PRESSURE SUPPORT. PATIENT BP AND PULSE STABLE. PATIENT'S O2 IS 88-90 WITH THE CPAP. DAUGHTER AT BEDSIDE WITH PATIENT. PATIENT IS VISABLY LETHARGIC AND WEAK; ONLY ABLE TO GIVE YES/NO ANSWERS. PATIENT CONTINUES TO BE NPO DUE TO ASPIRATION PRECAUTIONS.
--- NOTE | 2022-04-01 15:09 | NUR ---
Spoke with Primary RN Mita and discussed case. Pt confused and more lethargic today. Pt received second dialysis today. Pt resting in bed and wearing BIPAP. Pt's daughter and Pt's ex at bedside. Engaged in active listening and answered questions. Daughter just arrived last night from [place] and reports being tired. Attempted therapeutic conversation regarding advanced care planning. Daughter appears to struggle with processing information and states " I just want to knwo where he is at". Provided update and continued therapeutic listening. Daughter states that she has no plan to make any decisions for Pt and reports she plans to allow him to make decisions. Daughter requests to speak with MD. Ended visit. Called and spoke with Dr Monte and relayed request. Palliative Care will remain available.
--- NOTE | 2022-04-01 16:26 | NUR ---
DR HOROWITZ TO BEDSIDE TO ADDRESS CONCERNS WITH PT'S FAMILY, AND PROVIDE UPDATES AND EDUCATION TO FAMILY AT BEDSIDE.
--- NOTE | 2022-04-01 16:57 | NUR ---
SHIFT SUMMARY PATIENT IS A&O X2. PATIENT WAS LETHARGIC ON START OF SHIFT AND IT WAS DECIDED AFTER TALKING WITH CARLOS MANUEL MONSON TO MAKE PATIENT NPO DUE TO MENTATION AND ASPIRATION RISK. PATIENT NEEDED THE BIPAP BRIEFLY DUE TO CONTINUED DESATTING AFTER RETURNING FROM DIALYSIS. GOOD ORAL CARE WAS DONE SEVERAL TIME THIS AFTERNOON AND PATIENT WAS ABLE TO CLEAR A LARGE MUCUS/CAST OUT OF THROAT WITH SUCTIONING. AFTER CLEARING AIRWAY PATIENT WAS ABLE TO GO BACK TO 2L NC WITH O2 SATS >95%. RR REMAINS 22-24. SINCE BREATHING HAS IMPROVED THE PATIENT HAS BEEN ABLE TO TALK MORE AND ANSWER QUESTIONS MORE APPROPRIATELY COMPARED TO THIS MORNING. CARLOS MANUEL MONSON TO BEDSIDE WITH FAMILY TO DISCUSS PLAN OF CARE AT 1630. THE PROS AND CONS OF TREATMENT WERE DISCUSSED. THE PLAN IS TO LIKELY HAVE DIALYSIS TOMORROW AND CONTINUE TO SEE IF THE PATIENT RESPONDS AND SHOWS AN IMPROVEMENT IN HIS CONDITION WITH HIS RENAL/RESPIRATORY SYSTEMS. PATIENT CONTINUES TO HAVE POOR OUTPUT. IV NUTRITION IS CURRENTLY BEING CONSIDERED DUE TO NPO STATUS AND POOR NUTRITION. VSS AT THIS TIME. PATIENT BEING TURNED EVERY 2 HOURS WITH CONTINUED ORAL CARE AND SUCTIONING NEEDED. WILL CONTINUE TO MONITOR UNTIL SHIFT CHANGE AT 1900. BED IN LOWEST POSITION AND CALL LIGHT WITHIN REACH. FAMILY AT BEDSIDE.
--- NOTE | 2022-04-01 19:15 | NUR ---
PT ON CONTINUOUS CAMERA MONITORING, IT IS NOTED THAT FAMILY REMOVED BIPAP MASK FROM PT AND HAD PLACED HIM ON NASAL CANNULA WHICH THEY PLACED WRONG SPO2 BEGAN TO DROP. WHEN THIS RN, EVENING RN, AND ORIENTING RN TO ROOM. FAMILY STS THAT BIPAP MASK "HAD NO OXYGEN TO IT SO WE TOOK IT OFF OF HIM" UPON INSPECTING MASK IT IS NOTED TO HAVE AIRFLOW, FAMILY BEGAN TO RAISE VOICE TO STAFF WHEN ASKED FROM TO REMOVE EQUIPMENT FROM PT. PT WAS NOTED TO HAVE SPO2 OF 100% UNTIL HE WAS REMOVED FROM BIPAP BY FAMILY AND INCORRECTLY PLACED ON NASAL CANNULA.
--- NOTE | 2022-04-01 23:50 | NUR ---
PATIENT REPEATEDLY REMOVING HIS BIPAP MASK THROUGHOUT THE EVENING, STATING THAT HE DOES NOT WANT TO WEAR THE MASK ANYMORE. I ADVISE HIM WHY THERE IS A NEED FOR THE BI-PAP AND THE BENEFITS OF IT, AND HE WAS AGREEABLE TO HAVING PLACED BACK ON. HE TOLERATES THE MASK FOR MAX OF 10 MINUTES AND THEN REMOVES IT, SAYING AGAIN THAT HE DOES NOT WANT TO WEAR THE MASK ANYMORE. I EXPLAINED THAT WITHOUT THE SUPPORT OF THE BIPAP THAT HIS OXYGEN LEVELS DROP TO AN UNSAFE LEVEL. I OBSERVED MR. HANNA REMOVING HIS MASK AGAIN AROUND 23:20 VIA THE CAMERA MONITOR AT THE NURSE STATION ACROSS FROM [facility]. I ENTERED HIS ROOM AND WHEN I ATTEMPTED TO REPLACE THE MASK, HE FORCEFULLY PUSHED THE MASK AWAY AND SAID, "NO!" AGAIN, I EXPLAINED THE NEED AND PURPOSE OF THE BIPAP MASK. HIS RESPONSE WAS "I DON'T WANT IT. I AM DYING. I DON'T WANT ANY OF THIS." HE WENT ON TO SAY THAT HE KNOWS THAT HE IS NOT GOING TO GET ANY BETTER, HE KNOWS HE IS DYING, HE KNOWS ABOUT DIALYSIS AND HE KNOWS THAT HE IS NOT GOING TO GET ANY BETTER. MR. HANNA WAS VERY CLEAR IN HIS REQUESTS, AND REPEATED "I DON'T WANT TO DO ANY OF THIS ANYMORE," AT LEAST 3 TIMES. USING THERAPEUTIC COMMUNICATION, I REPEATED BACK WHAT HE SAID TO ME AND ASKED IF I AM UNDERSTANDING HIM CORRECTLY. HE MR. HANNA ANSWERED IN THE AFFIRMATIVE. I TOLD HIM THAT I CAN SPEAK WITH THE DOCTORS REGARDING HIS WISHES AND THAT WE WILL DO EVERYTHNG WE CAN TO HONOR HIS WISHES AND TO KEEP HIM COMFORTABLE. I ASKED IF HE WOULD LIKE ME TO CALL HIS DAUGHTER AKTIE AND SHARE HIS WISHES WITH HER. HE SAID THAT "I WANT MY KIDS TO BE HAPPY, BUT I DON'T WANT ANY MORE OF THIS." I SHARED THAT, A DAUGHTER WHO HAS LOST HER FATHER, I UNDERSTAND HIS CONCERN FOR HIS CHILDREN; AND WHILE IT IS NEVER EASY TO SAY GOODBYE TO SOMEONE WE LOVE, I'M CERTAIN THAT HIS FAMILY WANT HIM TO BE COMFORTABLE WITH THE CHOICE HE MAKES AT THIS TIME IN HIS LIFE. I ASKED AGAIN IF HE WANTS ME TO CALL HIS DAUGHTER KATIE AND HE SAID YES. I ADVISED MY BEAN SNIPPERJOSE DE JESUS DOWNING OF THE PATIENT'S WISHES AND MY INTENTION TO CALL HIS DAUGHTER PER HIS REQUEST. AT APPROXIMATELY 23:40, I CALLED KATIE AT [phone]. I SHARED THAT HER FATHER HAS EXPRESSED THAT HE DOES NOT WANT TO CONTINUE WITH DIALYSIS OR WEARING THE BI=PAP, THAT HE KNOWS HE IS DYING AND IS READY. KATIE'S FIRST RESPONSE TO ME WAS "HOW CAN MY FATHER SAY THAT WHEN HE CAN BARELY SPEAK?" I ACKNOWLEDGED THAT HIS VOICE IS QUITE HOARSE, BUT HE WAS ABLE TO MAKE HIS WISHES KNOWN AND REPEATED THEM A NUMBER OF TIMES. KATIE SAID THAT SHE WANTS TO HEAR IT FOR HERSELF. I SAID THAT I DON'T THINK SHE WILL BE ABLE TO HEAR HIM OVER THE PHONE BECAUSE OF HOW HOARSE HE IS, BUT THAT SHE IS WELCOME TO COME TO THE BEDSIDE. SHE STATED THAT SHE WILL COME TO THE [facility]. I ADVISED THE BEAN SNIPPER AND NURSING MANAGER ERP OF THE ABOVE AND THAT MR. HANNA' DAUGHTER IS COMING INTO THE HOSPITAL.
--- NOTE | 2022-04-02 01:30 | NUR ---
CALL TO HOSPITALIST RESIDENT DR. MO PATIENT HAS ASKED TO BE PLACED ON COMFORT CARE AND HAS STATED THIS IN THE PRESENCE OF HIS DAUGHTER KATIE WHO IS AT BEDSIDE. THE GOALS OF AND CARE PROVIDED WITH COMFORT CARE HAVE BEEN FULLY EXPLAINED TO MR. HANNA AND HIS DAUGHTER KATIE. I ADVISED DR. MO THAT THE PATIENT HAS NOT RESPONDED WELL TO ATIVAN PREVIOUSLY AND ASKED THAT A SUBSTITUTE BE CONSIDERED WHEN PLACING HIS ORDERS. EDGE TRIMMER MAUREEN DOWNING ADVISED OF CHANGE IN PATIENT STATUS.
--- NOTE | 2022-04-02 04:14 | NUR ---
CALLED TO PATIENT ROOM BY FAMILY MEMBER STATING THAT PATIENT NEEDS TO BE REPOSITIONED BECAUSE HE IS IN PAIN/UNCOMFORTABLE. I ASKED THE PATIENT WHERE HE WAS HAVING PAIN AND IF HE WOULD LIKE SOME PAIN MEDICINE. HE RESPONDED NO TO BOTH QUESTIONS. HIS LEGS WERE A BIT RESTLESS AND IT SEEMED HE WAS TRYING TO KICK THE PILLOW OUT BETWEEN HIS LEGS. PILLOW REMOVED AND PATIENT APPEARED COMFORTABLE. HE DENIED NEEDING TO BE REPOSITIONED. I OFFERED PAIN MEDICINE. THERE ARE 5 FAMILY MEMBERS IN THE ROOM AT THIS TIME. ONE FAMILY MEMBER SAID NO TO THE PAIN MEDICINE, ANOTHER SAID YES, AND A THIRD SAID HE SOMETIMES HAS THIS PAIN IN HIS LEGS AT HOME. THERE WAS NO AGREEMENT AMONG THE FAMILY MEMBERS REGARDING THE NEED FOR PAIN MEDICATION. THE PATIENT TOLD ME HE DIDN'T NEED ANY PAIN MEDICINE (HE HAD RECEIVED ROXANOL 45 MINUTES EARLIER) AND HE APPEARED COMFORTABLE. NO PAIN MEDICATION ADMINISTERED AT THIS TIME.
--- NOTE | 2022-04-02 09:12 | NUR ---
Pt resting in bed with eyes opened. Pt denies pain at this time. Pt C/O sore throat. Family at bedside. Instructed on plan to order spray for throat discomfort. Spoke with Dr Styles and discussed case. Placed order for [place] Q 6 hours PRN per V/O from Dr Styles. Palliative Care will remain available.
--- NOTE | 2022-04-02 18:01 | NUR ---
PT SUMMARY: PT HAS BEEN REPOSITIONED FOR COMFORT, WAS GIVEN ROXANOL PO TWICE FOR THE SHIFT, REFUSED MEDICATIONS ONCE OR TWICE FAMILY WAS PRESENT AT THE BEDSIDE THE ENTIRE SHIFT, PT AND FAMILY WAS ENCOURAGED FOR PT TO TAKE ANOTHER DOSE OF ROCANOL TO HELP WITH BREATHING AND FOR COMFORT, FAMILY AGREED EVEN PT WAS NOT RESPONSIVE THAT MUCH ANY MORE PT WAS STILL ABLE TO NOD AND MOVE HEAD AWAY WHEN ATTEMPTING TO ADMINISTER MEDICATION, FAMILY AGREED TO JUST GIVE IT. PT NOW RESTING IN BED, REPOSITIONED. PT RECEIVED A BED BATH FOR THE SHIFT. 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 WILL REPORT TO ONCOMING SHIFT
--- NOTE | 2022-04-02 22:52 | NUR ---
PHYSICIAN COMMUNICATION CONTACTED ROMAN HEREDIA TO NOTIFY HIM THAT THE PATIENT AT 2224. FAMILY PRESENT IN ROOM.
[2022-04-03 05:08] LABS: HBSAG SCREEN Negative (Negative); HCV AB 0.2 (0.0-0.9); HEP A AB, IGM Negative (Negative); HEP B CORE AB, IGM Negative (Negative)
== END 2022-04-02 22:25 | DRG 377 ==
LOC: ER 16:36 → PCU 23:38 → MEDS 04-02 19:42
PROVIDERS: Family Medicine; Hospitalist; Internal Medicine; Internal Medicine Nephrology; Physician Assistant; Student in an Organized Health Care Education/Training Program; ADMIT Internal Medicine
PROC: 30233N1 Transfusion of Nonautologous Red Blood Cells into Peripheral Vein, Percutaneous Approach (ICD-10-PCS; principal; 2022-03-27)
PROC: 8E0ZXY6 Isolation (ICD-10-PCS; 2022-03-27)
PROC: 3E033XZ Introduction of Vasopressor into Peripheral Vein, Percutaneous Approach (ICD-10-PCS; 2022-03-27)
PROC: 5A09357 Assistance with Respiratory Ventilation, Less than 24 Consecutive Hours, Continuous Positive Airway Pressure (ICD-10-PCS; 2022-03-28)
PROC: 0DJ08ZZ Inspection of Upper Intestinal Tract, Via Natural or Artificial Opening Endoscopic (ICD-10-PCS; 2022-03-28)
PROC: 02HV33Z Insertion of Infusion Device into Superior Vena Cava, Percutaneous Approach (ICD-10-PCS; 2022-03-31)
PROC: 5A1D70Z Performance of Urinary Filtration, Intermittent, Less than 6 Hours Per Day (ICD-10-PCS; 2022-04-01)
DX: K92.1 Melena (principal); G92.8 Other toxic encephalopathy; N17.0 Acute kidney failure with tubular necrosis; U07.1 COVID-19; N18.6 End stage renal disease; C79.51 Secondary malignant neoplasm of bone; I48.20 Chronic atrial fibrillation, unspecified; Z68.41 Body mass index [BMI] 40.0-44.9, adult; E87.2 Acidosis; I50.32 Chronic diastolic (congestive) heart failure; I13.2 Hypertensive heart and chronic kidney disease with heart failure and with stage 5 chronic kidney disease, or end stage renal disease; N25.81 Secondary hyperparathyroidism of renal origin; N13.30 Unspecified hydronephrosis; D62 Acute posthemorrhagic anemia; Z66 Do not resuscitate; Z51.5 Encounter for palliative care; D63.1 Anemia in chronic kidney disease; E11.22 Type 2 diabetes mellitus with diabetic chronic kidney disease; M10.9 Gout, unspecified; J44.9 Chronic obstructive pulmonary disease, unspecified; E78.00 Pure hypercholesterolemia, unspecified; M54.50 Low back pain, unspecified; G89.29 Other chronic pain; I35.0 Nonrheumatic aortic (valve) stenosis; E11.51 Type 2 diabetes mellitus with diabetic peripheral angiopathy without gangrene; E66.9 Obesity, unspecified; G47.33 Obstructive sleep apnea (adult) (pediatric); F41.9 Anxiety disorder, unspecified; M19.90 Unspecified osteoarthritis, unspecified site; B35.1 Tinea unguium; H02.89 Other specified disorders of eyelid; B95.62 Methicillin resistant Staphylococcus aureus infection as the cause of diseases classified elsewhere; R57.1 Hypovolemic shock; K74.60 Unspecified cirrhosis of liver; E66.01 Morbid (severe) obesity due to excess calories; E87.70 Fluid overload, unspecified; E87.5 Hyperkalemia; C61 Malignant neoplasm of prostate; E83.39 Other disorders of phosphorus metabolism; Z86.79 Personal history of other diseases of the circulatory system; Z98.890 Other specified postprocedural states; Z99.81 Dependence on supplemental oxygen; Z88.8 Allergy status to other drugs, medicaments and biological substances; Z91.018 Allergy to other foods; Z88.1 Allergy status to other antibiotic agents; Z79.82 Long term (current) use of aspirin; Z79.899 Other long term (current) drug therapy; Z79.4 Long term (current) use of insulin; Z79.02 Long term (current) use of antithrombotics/antiplatelets; Z79.01 Long term (current) use of anticoagulants; Z86.010 Personal history of colon polyps; Z83.3 Family history of diabetes mellitus; Z82.49 Family history of ischemic heart disease and other diseases of the circulatory system; Z80.0 Family history of malignant neoplasm of digestive organs
CPT/HCPCS: 0241U; 36415; 36430; 36556; 51702; 71045; 76770; 80048; 80053; 80069; 80074; 81001; 82272; 82607; 82728; 82746; 82947; 83540; 83550; 83605; 83735; 83880; 84145; 84484; 85014; 85018; 85025; 85610; 86317; 86850; 86900; 86901; 86923; 87040; 87070; 87077; 87147; 87186; 87205; 93005; 93010; 94640; 94660; 94664; 94760; 94762; 96361; 96374; 99285-25; A9270; C1752; C9113; J0881; J1815; J1940; J2060; J2370; J2543; J2704; J3370; J7030; J7050; J7120; P9016

== ENCOUNTER → 2022-03-27 | Outpatient (CLI) | payer OTHER ==
[~2022-03-27] MED LIST changes: +ATOR20 PO; +Acetaminophen650 M1 PO; +D3 PO; +GUAI600T33 PO; +NYSTATIN POWDER TOP; +Robaxin750 MG PO; +THERA-D2000 UNIT PO; +Triamcinolone A15 G2 TOP
[2022-03-27 20:20] LABS: PSA, %Free 24.9 %
== END | disposition home or self-care (01) ==
LOC: LAB SHORT 15:30
PROVIDERS: Internal Medicine Hematology & Oncology
DX: C61 Malignant neoplasm of prostate (principal)
CPT/HCPCS: 84153; 84154